=== PATIENT | female | born 1990 | race Two or more races ===

== ENCOUNTER 2018-08-09 15:36 | Inpatient (IN) | payer MEDICAID ==
[~2018-08-09] VITALS: Ht 167.6 cm; Wt 86.3 kg
[2018-08-09] MEDS ORDERED: SODIUM CHLORIDE 0.9% 500 ML IV ONE (15:46)
[2018-08-09] MEDS ORDERED: MORPHINE SULFATE 4 MG/ML SYR/VIAL IV ONE (16:00)
[2018-08-09] MEDS ORDERED: ONDANSETRON HCL 4 MG/2 ML VIAL IV ONE (16:00)
[2018-08-09 16:42] LABS: Albumin 3.2 g/dL (3.4-5.0); Calcium 7.5 mg/dL (8.5-10.1); Magnesium 2.2 mg/dL (1.6-2.6); Potassium 3.9 mmol/L (3.5-5.1)
[2018-08-09 16:44] LABS: Basophils # (auto) 0 uL; Basophils % (auto) 0.2 % (0.0-2.0); Eosinophils # (auto) 0 uL; Eosinophils % (auto) 0.2 % (0.0-7.0); Hematocrit 30.3 % (36.0-46.0); Hemoglobin 10.3 g/dL (12.2-16.2); Mean Corpuscular Hemoglobin 28.1 pg (28.0-32.0); Mean Corpuscular Volume 82.6 fL (80.0-100.0); Monocytes # (auto) 0.2 uL; Monocytes % (auto) 3.5 % (0.0-12.0); Neutrophils # (auto) 5.6 uL; Neutrophils % (auto) 82.1 % (37.0-80.0); Platelet Count (auto) 121 10^3/uL (140-450); Red Blood Cells 3.67 10^6/uL (4.0-5.20); Red Cell Distribution Width 13.6 % (11.8-14.3); White Blood Cell 6.8 10^3/uL (4.4-10.8)
[2018-08-09 16:45] LABS: BUN/Creatinine Ratio 8.8
[2018-08-09 16:47] LABS: Bilirubin, Total 0.2 mg/dL (0.2-1.0); Total Protein 6.7 g/dL (6.4-8.2)
[2018-08-09 17:12] LABS: INR 0.96 (0.9-1.15); Partial Thromboplastin Time 23.2 sec (23.78-33.04); Prothrombin Time 10.3 sec (9.27-12.13)
[2018-08-09 17:33] LABS: Urine Bacteria NONE SEEN /hpf (None Seen); Urine Blood Negative /uL (Negative); Urine Mucus FEW (None Seen); Urine Specific Gravity 1.014 (1.001-1.035); Urine WBC 2 /hpf (0 - 5)
[2018-08-09] MEDS ORDERED: MIDAZOLAM HCL 1MG/1ML-2 ML VIAL ONE (20:33)
[2018-08-09] MEDS ORDERED: NEOSTIGMINE 1 MG/ML INJ (10mg/10ML VIAL) ONE (20:33)
[2018-08-09] MEDS ORDERED: GLYCOPYRROLATE 0.2 MG/ML 1ML VIAL ONE (20:33)
[2018-08-09] MEDS ORDERED: fentaNYL CITRATE 100 MCG/2 ML VL ONE (20:33)
[2018-08-09] MEDS ORDERED: KETOROLAC TROMETH 60MG/2ML VIAL IM ONE (20:33)
[2018-08-09] MEDS ORDERED: MEPERIDINE HCL (50 MG/ML) 1 ML VIAL ONE (20:33)
[2018-08-09] MEDS ORDERED: PROPOFOL 10 MG/ML 20 ML IV ONE (20:33)
[2018-08-09] MEDS ORDERED: SODIUM CHLORIDE LOCK 10 ML ONE (20:33)
[2018-08-09] MEDS ORDERED: ONDANSETRON HCL 4 MG/2 ML VIAL ONE (20:33)
[2018-08-09] MEDS ORDERED: ROCURONIUM 10MG/ML 10ML VIAL IV ONE (20:33)
[2018-08-09] MEDS ORDERED: fentaNYL CITRATE 5 ML ONE (20:37)
[2018-08-09] MEDS ORDERED: ceFAZolin 1GM/50ML 50 ML IV ONE (21:03)
[2018-08-09] MEDS ORDERED: ACETAMINOPHEN 500 MG TAB PO PRN (22:00)
[2018-08-09 22:27] LABS: Basophils # (auto) 0 uL; Basophils % (auto) 0.1 % (0.0-2.0); Eosinophils # (auto) 0 uL; Hemoglobin 8.4 g/dL (12.2-16.2); Lymphocytes # (auto) 0.8 uL; Lymphocytes % (auto) 8.2 % (10.0-50.0); Mean Corpuscular Volume 84.6 fL (80.0-100.0); Monocytes # (auto) 0.4 uL; Red Cell Distribution Width 13.8 % (11.8-14.3)
[2018-08-09 22:29] LABS: Hematocrit 25.7 % (36.0-46.0); Mean Corpuscular Hemoglobin 27.7 pg (28.0-32.0); Mean Corpuscular Hgb Conc. 32.7 g/dL (32.0-36.0); Monocytes % (auto) 4.1 % (0.0-12.0); Neutrophils # (auto) 8.9 uL; Neutrophils % (auto) 87.6 % (37.0-80.0); Platelet Count (auto) 136 10^3/uL (140-450); Red Blood Cells 3.04 10^6/uL (4.0-5.20); White Blood Cell 10.1 10^3/uL (4.4-10.8)
[2018-08-09 23:00] VITALS: BP 111/71
[2018-08-09 23:10] VITALS: BP 111/71
[2018-08-09] MEDS: MORPHINE SULFATE 4 MG/ML SYR/VIAL IV PRN (23:42)
[2018-08-10] VITALS (8 sets, daily range): BP systolic 99–107; BP diastolic 48–64
[2018-08-10] MEDS: MORPHINE SULFATE 4 MG/ML SYR/VIAL IV PRN (05:20)
[2018-08-10 06:46] LABS: Basophils # (auto) 0 uL; Eosinophils # (auto) 0 uL; Hemoglobin 7.8 g/dL (12.2-16.2); Lymphocytes # (auto) 0.3 uL; Mean Corpuscular Hgb Conc. 34.3 g/dL (32.0-36.0); Monocytes # (auto) 0.1 uL; Monocytes % (auto) 2.2 % (0.0-12.0); Platelet Count (auto) 112 10^3/uL (140-450)
[2018-08-10 06:49] LABS: Hematocrit 22.6 % (36.0-46.0); Lymphocytes % (auto) 5.5 % (10.0-50.0); Mean Corpuscular Hemoglobin 28.2 pg (28.0-32.0); Mean Corpuscular Volume 82.1 fL (80.0-100.0); Neutrophils # (auto) 5.3 uL; Neutrophils % (auto) 92.3 % (37.0-80.0); Red Blood Cells 2.76 10^6/uL (4.0-5.20); Red Cell Distribution Width 13.5 % (11.8-14.3); White Blood Cell 5.8 10^3/uL (4.4-10.8)
[2018-08-10] MEDS ORDERED: BISACODYL 10 MG RECT SUPP PR PRN (08:30)
[2018-08-10] MEDS ORDERED: RHO (D) IMMUNE GLOBULIN 300 MCG INJ IM PRN (08:30)
[2018-08-10] MEDS: ONDANSETRON HCL 4 MG/2 ML VIAL IV PRN ×2 (10:30→16:25)
[2018-08-10] MEDS: KETOROLAC TROMETH 30 MG/ML 1ML VIAL IV PRN ×2 (10:31→21:38)
[2018-08-10] MEDS: HYDROcodone-ACET 10/325MG TAB PO PRN ×3 (11:43→23:29)
[2018-08-10] MEDS: SIMETHICONE 80 MG CHEWABLE TABLET PO SCH ×3 (16:24→21:39)
[2018-08-10] MEDS: DOCUSATE CALCIUM 240 MG CAP PO SCH (16:46)
[2018-08-10] MEDS: LACTATED RINGER'S 1,000 ML IV SCH (19:00)
[2018-08-10 19:53] LABS: Basophils # (auto) 0 uL; Basophils % (auto) 0.1 % (0.0-2.0); Eosinophils # (auto) 0 uL; Hematocrit 23.6 % (36.0-46.0); Hemoglobin 8.2 g/dL (12.2-16.2); Lymphocytes # (auto) 0.8 uL; Lymphocytes % (auto) 18.7 % (10.0-50.0); Mean Corpuscular Hemoglobin 28.6 pg (28.0-32.0); Mean Corpuscular Hgb Conc. 34.7 g/dL (32.0-36.0); Mean Corpuscular Volume 82.6 fL (80.0-100.0); Monocytes # (auto) 0.3 uL; Monocytes % (auto) 7.2 % (0.0-12.0); Neutrophils # (auto) 3.3 uL; Platelet Count (auto) 110 10^3/uL (140-450); Red Blood Cells 2.86 10^6/uL (4.0-5.20); Red Cell Distribution Width 13.8 % (11.8-14.3); White Blood Cell 4.5 10^3/uL (4.4-10.8)
[2018-08-11] MEDS: LACTATED RINGER'S 1,000 ML IV SCH ×3 (00:32→23:30)
[2018-08-11] MEDS: HYDROcodone-ACET 10/325MG TAB PO PRN ×5 (02:30→21:05)
[2018-08-11 05:00] VITALS: BP 106/61
[2018-08-11] MEDS: SIMETHICONE 80 MG CHEWABLE TABLET PO SCH ×4 (06:09→21:04)
[2018-08-11] MEDS ORDERED: LACTATED RINGER'S 1,000 ML IV SCH (06:15)
[2018-08-11 07:07] LABS: Basophils # (auto) 0 uL; Basophils % (auto) 0.3 % (0.0-2.0); Eosinophils # (auto) 0 uL; Hemoglobin 7.7 g/dL (12.2-16.2); Lymphocytes # (auto) 0.9 uL; Monocytes # (auto) 0.2 uL; Nucleated Red Blood Cells % 0.1 %; Platelet Count (auto) 86 10^3/uL (140-450); Red Cell Distribution Width 13.9 % (11.8-14.3)
[2018-08-11 07:09] LABS: Eosinophils % (auto) 0.1 % (0.0-7.0); Mean Corpuscular Hemoglobin 28.9 pg (28.0-32.0); Mean Corpuscular Hgb Conc. 34.8 g/dL (32.0-36.0); Neutrophils % (auto) 64.6 % (37.0-80.0); Red Blood Cells 2.65 10^6/uL (4.0-5.20)
[2018-08-11 08:17] VITALS: BP 112/65
[2018-08-11] MEDS: ONDANSETRON HCL 4 MG/2 ML VIAL IV PRN (08:37)
[2018-08-11] MEDS: KETOROLAC TROMETH 30 MG/ML 1ML VIAL IV PRN (08:37)
[2018-08-11] MEDS: DOCUSATE CALCIUM 240 MG CAP PO SCH (10:00)
[2018-08-11 12:07] VITALS: BP 113/65
[2018-08-11 16:39] VITALS: BP 101/67
[2018-08-11] MEDS: DOCUSATE SOD 100 MG CAP PO PRN (21:05)
[2018-08-11 21:45] VITALS: BP 114/70
[2018-08-12] MEDS: KETOROLAC TROMETH 30 MG/ML 1ML VIAL IV PRN (00:02)
[2018-08-12 04:39] VITALS: BP 111/62
[2018-08-12] MEDS: HYDROcodone-ACET 10/325MG TAB PO PRN (05:53)
[2018-08-12] MEDS: SIMETHICONE 80 MG CHEWABLE TABLET PO SCH ×2 (05:53→12:40)
[2018-08-12] MEDS: ONDANSETRON HCL 4 MG/2 ML VIAL IV PRN (08:36)
[2018-08-12 08:54] VITALS: BP 112/68
[2018-08-12] MEDS: DOCUSATE SOD 100 MG CAP PO PRN (08:57)
[2018-08-12] MEDS: DOCUSATE CALCIUM 240 MG CAP PO SCH (11:33)
[2018-08-12 13:00] VITALS: BP 114/66
== END 2018-08-12 16:30 | disposition home or self-care (01) | DRG 545 ==
LOC: EDBD 15:36 → ER 15:46 → OR 1 21:10 → CENTRAL 23:00
PROVIDERS: ADMIT Obstetrics & Gynecology; ATTEND Obstetrics & Gynecology
PROC: 10T20ZZ Resection of Products of Conception, Ectopic, Open Approach (ICD-10-PCS; 2018-08-09)
PROC: 30233N0 Transfusion of Autologous Red Blood Cells into Peripheral Vein, Percutaneous Approach (ICD-10-PCS; 2018-08-09)
PROC: 0WCG0ZZ Extirpation of Matter from Peritoneal Cavity, Open Approach (ICD-10-PCS; 2018-08-09)
PROC: 0UB50ZZ Excision of Right Fallopian Tube, Open Approach (ICD-10-PCS; principal; 2018-08-09 21:00)
DX: O00.101 Right tubal pregnancy without intrauterine pregnancy (principal); K66.1 Hemoperitoneum; N83.201 Unspecified ovarian cyst, right side; Z87.59 Personal history of other complications of pregnancy, childbirth and the puerperium; F17.200 Nicotine dependence, unspecified, uncomplicated; F41.9 Anxiety disorder, unspecified; I95.9 Hypotension, unspecified
CPT/HCPCS: 36415; 51702; 76801; 76817; 80053; 81001; 81025; 83735; 84702; 85025; 85610; 85730; 86850; 86900; 86901; 86920; 93005; 94761; 96361; 96374; 96375; J0690; J1885; J2250; J2405; J2704

== ENCOUNTER 2018-10-11 14:44 | Emergency (ER) | payer MEDICAID ==
[~2018-10-11] VITALS: Ht 167.6 cm; Wt 65.3 kg
[2018-10-11 15:30] LABS: Urine Bacteria NONE SEEN /hpf (None Seen); Urine Blood 2+ /uL (Negative); Urine Mucus FEW (None Seen); Urine Specific Gravity 1.022 (1.001-1.035); Urine WBC 3 /hpf (0 - 5)
[2018-10-11 15:33] VITALS: BP 113/68
[2018-10-11 16:02] LABS: Basophils # (auto) 0 uL; Basophils % (auto) 0.6 % (0.0-2.0); Eosinophils # (auto) 0 uL; Eosinophils % (auto) 0.7 % (0.0-7.0); Hematocrit 30.5 % (36.0-46.0); Hemoglobin 9.4 g/dL (12.2-16.2); Lymphocytes # (auto) 0.9 uL; Mean Corpuscular Hemoglobin 23.5 pg (28.0-32.0); Mean Corpuscular Hgb Conc. 30.6 g/dL (32.0-36.0); Mean Corpuscular Volume 76.8 fL (80.0-100.0); Monocytes # (auto) 0.2 uL; Monocytes % (auto) 6.5 % (0.0-12.0); Neutrophils # (auto) 2.1 uL; Neutrophils % (auto) 65.2 % (37.0-80.0); Nucleated Red Blood Cells % 0.2 %; Platelet Count (auto) 159 10^3/uL (140-450); Red Blood Cells 3.97 10^6/uL (4.0-5.20); Red Cell Distribution Width 15.3 % (11.8-14.3); White Blood Cell 3.2 10^3/uL (4.4-10.8)
== END 2018-10-11 16:25 | disposition home or self-care (01) ==
LOC: ER 14:44
DX: N94.6 Dysmenorrhea, unspecified (principal); I10 Essential (primary) hypertension
CPT/HCPCS: 36415; 81001; 84702; 85025; 94761

== ENCOUNTER 2019-04-19 18:41 | Emergency (ER) | payer MEDICAID ==
[~2019-04-19] VITALS: Ht 165.1 cm; Wt 63.5 kg
[2019-04-19 19:59] LABS: Basophils # (auto) 0 uL; Basophils % (auto) 0.3 % (0.0-2.0); Eosinophils # (auto) 0 uL; Eosinophils % (auto) 0.2 % (0.0-7.0); Hemoglobin 9.4 g/dL (12.2-16.2); Mean Corpuscular Hemoglobin 22.9 pg (28.0-32.0); Monocytes # (auto) 0.3 uL; Platelet Count (auto) 155 10^3/uL (140-450); Red Blood Cells 4.12 10^6/uL (4.0-5.20)
[2019-04-19 20:01] LABS: Lymphocytes # (auto) 0.7 uL; Lymphocytes % (auto) 11.4 % (10.0-50.0); Mean Corpuscular Hgb Conc. 31.3 g/dL (32.0-36.0); Monocytes % (auto) 4.4 % (0.0-12.0); Neutrophils # (auto) 5.5 uL; Neutrophils % (auto) 83.7 % (37.0-80.0); Red Cell Distribution Width 16.1 % (11.8-14.3); White Blood Cell 6.5 10^3/uL (4.4-10.8)
[2019-04-19 20:19] LABS: Albumin 3.7 g/dL (3.4-5.0); BUN/Creatinine Ratio 10.1; Calcium 8.3 mg/dL (8.5-10.1); Potassium 3.6 mmol/L (3.5-5.1)
[2019-04-19 20:22] LABS: Bilirubin, Total 0.2 mg/dL (0.2-1.0); Total Protein 7.5 g/dL (6.4-8.2)
[2019-04-19 20:43] LABS: Urine Bacteria NONE SEEN /hpf (None Seen); Urine Blood 1+ /uL (Negative); Urine Specific Gravity 1.005 (1.001-1.035); Urine WBC <1 /hpf (0 - 5)
[2019-04-19] MEDS ORDERED: ONDANSETRON HCL 4 MG/2 ML VIAL IV ONE (21:00)
[2019-04-19] MEDS ORDERED: MORPHINE SULFATE 4 MG/ML SYR/VIAL IV ONE (21:00)
[2019-04-19] MEDS ORDERED: SODIUM CHLORIDE 0.9% 1,000 ML IV ONE (21:00)
[2019-04-20 02:44] VITALS: BP 112/74
== END 2019-04-20 02:32 | disposition home or self-care (01) ==
LOC: EDBD 18:41 → ER 18:42
DX: K42.9 Umbilical hernia without obstruction or gangrene (principal)
CPT/HCPCS: 36415; 74176; 80053; 81001; 81025; 83690; 84702; 85025; 96374; 96375; 99284; J2270; J2405; J7030; 96361

== ENCOUNTER 2019-04-20 10:57 | Emergency (ER) | payer MEDICAID ==
[~2019-04-20] VITALS: Ht 167.6 cm; Wt 77.1 kg
[2019-04-20 11:29] VITALS: BP 114/37
[2019-04-20] MEDS ORDERED: KETOROLAC TROMETH 60MG/2ML VIAL IM ONE (11:30)
== END 2019-04-20 13:57 | disposition home or self-care (01) ==
LOC: ER 10:57
DX: N83.201 Unspecified ovarian cyst, right side (principal); K59.00 Constipation, unspecified
CPT/HCPCS: 76856; 96372; 99284; J1885

== ENCOUNTER 2021-05-15 22:20 | Emergency (ER) | payer MEDICAID ==
[~2021-05-15] VITALS: Ht 162.6 cm; Wt 65.8 kg
[2021-05-15 22:42] LABS: Basophils # (auto) 0 10 ^3/uL (0-0.2); Basophils % (auto) 0.7 % (0.0-2.0); Eosinophils # (auto) 0 10 ^3/uL (0-0.8); Eosinophils % (auto) 0.8 % (0.0-7.0); Hematocrit 36.3 % (36.0-46.0); Hemoglobin 12.2 g/dL (12.2-16.2); Lymphocytes # (auto) 1.1 10 ^3/uL (0.4-5.4); Lymphocytes % (auto) 29.4 % (10.0-50.0); Mean Corpuscular Hemoglobin 27.1 pg (28.0-32.0); Mean Corpuscular Hgb Conc. 33.7 g/dL (32.0-36.0); Mean Corpuscular Volume 80.5 fL (80.0-100.0); Monocytes # (auto) 0.2 10 ^3/uL (0-1.3); Monocytes % (auto) 5.5 % (0.0-12.0); Neutrophils # (auto) 2.4 10 ^3/uL (1.6-8.6); Neutrophils % (auto) 63.6 % (37.0-80.0); Nucleated Red Blood Cells % 0.3 %; Red Blood Cells 4.51 10^6/uL (4.0-5.20); Red Cell Distribution Width 14.6 % (11.8-14.3); White Blood Cell 3.9 10^3/uL (4.4-10.8)
[2021-05-15 23:08] LABS: BUN/Creatinine Ratio 14.1; Calcium 8.6 mg/dL (8.5-10.1); Potassium 3.4 mmol/L (3.5-5.1)
[2021-05-16] MEDS ORDERED: cefTRIAXone 1GM/50ML D5W 50 ML IV ONE (02:30)
[2021-05-16] MEDS ORDERED: MORPHINE SULFATE 4 MG/ML SYR/VIAL IV ONE (02:30)
[2021-05-16] MEDS ORDERED: KETOROLAC TROMETH 30 MG/ML 1ML VIAL IV ONE (02:30)
[2021-05-16] MEDS ORDERED: diphenhdrAMINE HCL 50 MG/1 ML VL IV ONE (02:30)
[2021-05-16 05:00] VITALS: BP 111/66
== END 2021-05-16 06:41 | disposition home or self-care (01) ==
LOC: EDBD 22:20 → ER 22:21
DX: R10.2 Pelvic and perineal pain (principal); N89.8 Other specified noninflammatory disorders of vagina; F41.9 Anxiety disorder, unspecified; Z88.6 Allergy status to analgesic agent; Z88.5 Allergy status to narcotic agent
CPT/HCPCS: 36415; 76830; 76856; 80048; 81001; 81025; 85025; 87070; 87205; 87210; 96365; 96375; 99285; J0696; J1200; J1885; J2270

== ENCOUNTER 2021-05-30 23:18 | Emergency (ER) | payer MEDICAID ==
[~2021-05-30] VITALS: Ht 165.1 cm; Wt 78.0 kg
[2021-05-31 00:26] LABS: Basophils # (auto) 0 10 ^3/uL (0-0.2); Basophils % (auto) 0.5 % (0.0-2.0); Eosinophils # (auto) 0 10 ^3/uL (0-0.8); Eosinophils % (auto) 0.6 % (0.0-7.0); Hematocrit 35.8 % (36.0-46.0); Hemoglobin 12.3 g/dL (12.2-16.2); Lymphocytes # (auto) 0.9 10 ^3/uL (0.4-5.4); Lymphocytes % (auto) 22.8 % (10.0-50.0); Mean Corpuscular Hemoglobin 27.9 pg (28.0-32.0); Mean Corpuscular Hgb Conc. 34.3 g/dL (32.0-36.0); Mean Corpuscular Volume 81.3 fL (80.0-100.0); Monocytes # (auto) 0.2 10 ^3/uL (0-1.3); Monocytes % (auto) 5.1 % (0.0-12.0); Neutrophils # (auto) 2.7 10 ^3/uL (1.6-8.6); Nucleated Red Blood Cells % 0.1 %; Red Blood Cells 4.41 10^6/uL (4.0-5.20); Red Cell Distribution Width 14.7 % (11.8-14.3); White Blood Cell 3.8 10^3/uL (4.4-10.8)
[2021-05-31 00:43] LABS: Albumin 3.6 g/dL (3.4-5.0); Calcium 8.6 mg/dL (8.5-10.1); Potassium 3.5 mmol/L (3.5-5.1)
[2021-05-31 00:45] LABS: BUN/Creatinine Ratio 10.9
[2021-05-31 00:48] LABS: Bilirubin, Total 0.2 mg/dL (0.2-1.0); Total Protein 7.3 g/dL (6.4-8.2)
[2021-05-31] MEDS ORDERED: IOHEXOL 300 MG/ML 100ML BOTTLE IJ ONE (00:58)
[2021-05-31] MEDS ORDERED: SODIUM CHLORIDE 0.9% 1,000 ML IV ONE (01:00)
[2021-05-31] MEDS ORDERED: MORPHINE SULFATE 4 MG/ML SYR/VIAL IV ONE (01:00)
[2021-05-31] MEDS ORDERED: ONDANSETRON HCL 4 MG/2 ML VIAL IV ONE (01:00)
[2021-05-31 05:30] VITALS: BP 116/76
== END 2021-05-31 06:23 | disposition home or self-care (01) ==
LOC: ER 23:18
DX: G89.18 Other acute postprocedural pain (principal); R10.30 Lower abdominal pain, unspecified; R11.2 Nausea with vomiting, unspecified; F41.9 Anxiety disorder, unspecified; Z88.6 Allergy status to analgesic agent; Z88.5 Allergy status to narcotic agent
CPT/HCPCS: 36415; 74177; 80053; 83690; 84702; 85025; 96374; 96375; 99285; J2270; J2405; Q9967

== ENCOUNTER 2021-09-22 17:39 | Emergency (ER) | payer MEDICAID ==
[~2021-09-22] VITALS: Ht 165.1 cm; Wt 72.6 kg
[2021-09-22 18:03] VITALS: BP 115/58
== END 2021-09-22 22:27 | disposition left against medical advice (07) ==
LOC: ER 17:39
DX: R07.89 Other chest pain (principal); F41.9 Anxiety disorder, unspecified; Z53.21 Procedure and treatment not carried out due to patient leaving prior to being seen by health care provider

== ENCOUNTER 2024-09-10 09:35 | Inpatient (IN) | payer MEDICAID, OTHER ==
[~2024-09-10] VITALS: Ht 165.1 cm; Wt 83.6 kg
[~2024-09-10 09:35] MED LIST: LEVO500T91 PO; PRED20TA2 PO
[2024-09-10 09:58] VITALS: PULSE 77; RESP 14; O2SAT 97
[2024-09-10] MEDS: SODIUM CHLORIDE 0.9% 1,000 ML IV ONE ×2 (10:18→13:09)
[2024-09-10 10:26] LABS: Basophils # (auto) 0 10 ^3/uL (0-0.2); Basophils % (auto) 0.4 % (0.0-2.0); Eosinophils # (auto) 0 10 ^3/uL (0-0.8); Eosinophils % (auto) 0.7 % (0.0-7.0); Hematocrit 37.8 % (36.0-46.0); Hemoglobin 12.9 g/dL (12.2-16.2); Lymphocytes % (auto) 26.6 % (10.0-50.0); Mean Corpuscular Hemoglobin 28.2 pg (28.0-32.0); Mean Corpuscular Hgb Conc. 34.1 g/dL (32.0-36.0); Mean Corpuscular Volume 82.6 fL (80.0-100.0); Monocytes # (auto) 0.2 10 ^3/uL (0-1.3); Monocytes % (auto) 5.4 % (0.0-12.0); Neutrophils # (auto) 2.5 10 ^3/uL (1.6-8.6); Neutrophils % (auto) 66.9 % (37.0-80.0); Platelet Count (auto) 156 10^3/uL (140-450); Red Blood Cells 4.58 10^6/uL (4.0-5.20); White Blood Cell 3.7 10^3/uL (4.4-10.8)
[2024-09-10 10:32] LABS: Chloride 108 mmol/L (98-107); Potassium 3.7 mmol/L (3.5-5.1); Sodium 140 mmol/L (136-145)
[2024-09-10 10:33] LABS: Anion Gap 3 (5-15); Calcium 9.6 mg/dL (8.7-10.4); Carbon Dioxide 29 mmol/L (20-31)
[2024-09-10 10:38] LABS: BUN/Creatinine Ratio 9.9 (10.0-20.0); Blood Urea Nitrogen 7 mg/dL (9-23); Glucose 92 mg/dL (74-106)
--- NOTE | 2024-09-10 10:53 | DVH ---
EXAM: CT HEAD WITHOUT CONTRAST INDICATION: syncope TECHNIQUE: CT of the head without intravenous contrast. Radiation dose : Head: CT Dose: CTDI volume is 49 mGy. Dose-length product is 863.9 mGy*cm The dose indicators for CT are the volume computed tomography (CT) dose index (CTDIvol) and the dose length product (DLP), and are measured in units of mGy and mGy-cm, respectively. These indicators are not patient dose, but values generated from the CT scanner acquisition factors. The report includes radiation exposure data for exposures received during this examination. COMPARISON: None FINDINGS: There is no evidence of acute intracranial hemorrhage, extra-axial collection, mass effect, midline s hift, herniation or hydrocephalus. The ventricles, sulci and cisterns are age appropriate. The davila-white differentiation is intact. The visualized paranasal sinuses and mastoid air cells are clear. The surrounding soft tissues and osseous structures are unremarkable. IMPRESSION: 1. No acute intracranial abnormality. Radiation optimization: All CT scans at this facility use at least one of these dose optimization darin hniques: Automated exposure control mA and/or kV adjustment per patient size (includes targeted exams where dose is matched to clinical indication) or iterative reconstruction. HS:Y
--- NOTE | 2024-09-10 11:40 | ED.PDOC ---
History of Present Illness HPI Comments 33 y/o F is BIBA for c/o back and right leg pain s/p syncope, today. Per EMS report, patient was found by bystanders on the ground nearby a street crossing, endorsing symptoms, after having an unwitnessed syncopal episode. Patient comments on having no recollection of events aside from dropping of her kids and sitting in her car, earlier. Patient denies any headache, vision or speech changes, dizziness, weakness, nausea vomiting, or other associated symptoms or modifiers at this time. Chief Complaint: Syncope Time Seen by MD: 09:50 Reviewed Notes: Nurses Notes, Medications, Allergies Allergies: Coded Allergies: Acetaminophen (Verified Allergy, Unknown, 05/16/21) Hydrocodone (Verified Allergy, Unknown, 05/16/21) No Known Drug Allergy (Unverified Allergy, Unknown, 01/02/23) Home Meds Active Scripts Prednisone (Prednisone) 20 Mg Tab, 20 MG PO DAILY for 5 Days, #5 MG Prov:VARSHA GAXIOLA MD 10/19/23 Levofloxacin Hemihydrate (LEVOFLOXACIN) 500 Mg Tab, 500 MG PO DAILY for 7 Days, #7 MG Prov:VARSHA GAXIOLA MD 10/19/23 Information Source: Patient Mode of Arrival: EMS Severity: Moderate Timing: Hours Duration: Since onset Prehospital treatment: 12 Lead EKG, Sonar Technician Past Medical History PAST MEDICAL HISTORY: Denies Surgical History: Denies all surgeries MIGRATORY FARM HAND History: Denies all MIGRATORY FARM HAND Hx Family History Family History: Unknown Social History Smoker: Non-Smoker Alcohol: Denies ETOH Use Drugs: Denies Drug Use Lives In: Home Constitutional: denies: chills, diaphoresis, fatigue, fever, malaise, sweats, weakness, others EENTM: denies: blurred vision, double vision, ear bleeding, ear discharge, ear drainage, ear pain, ear ringing, eye pain, eye redness, hearing loss, mouth pain, mouth swelling, nasal discharge, nose bleeding, nose congestion, nose pain, photophobia, tearing, throat pain, throat swelling, voice changes, others Respiratory: denies: cough, hemoptysis, orthopnea, SOB at rest, shortness of breath, SOB with excertion, stridor, wheezing, others Cardiovascular: reports: syncope; denies: chest pain, dizzy spells, diaphoresis, Dyspnea on exertion, edema, irregular heart beat, left arm pain, lightheadedness, palpitations, PND, others Gastrointestinal: denies: abdomen distended, abdominal pain, blood streaked bowels, constipated, diarrhea, dysphagia, difficulty swallowing, hematemesis, melena, nausea, poor appetite, poor fluid intake, rectal bleeding, rectal pain, vomiting, others Genitourinary: denies: abnormal vagina bleeding, burning, dyspareunia, dysuria, flank pain, frequency, hematuria, incontinence, pain, , vagina discharge, urgency, others Neurological: denies: dizziness, fainting, headache, left sided numbness, left sided weakness, numbness, paresthesia, pre-existing deficit, right sided numbness, right sided weakness, seizure, speech problems, tingling, tremors, weakness, others Musculoskeletal: reports: back pain, others (right-leg pain ); denies: gout, joint pain, joint swelling, muscle pain, muscle stiffness, neck pain Integumetry: denies: bruises, change in color, change in hair/nails, dryness, laceration, lesions, lumps, rash, wounds, others Allergic/Immunocompromised: denies: Difficulty Healing, Frequent Infections, Hives, Itching, others Hematologic/Lymphatic: denies: anemia, blood clots, easy bleeding, easy bruising, swollen glands, others Endocrine: denies: excessive hunger, excessive sweating, excessive thirst, excessive urination, flushing, intolerance to cold, intolerance to heat, unexplained weight gain, unexplained weight loss, others Psychiatric: denies: anxiety, bipolar disorder, depression, hopeless, panic disorder, schizophrenia, sleepless, suicidal, others All Other Systems: Reviewed and Negative Physical Exam General Appearance: Moderate Distress HEENT: Normal ENT Inspection, Pharynx Normal, TMs Normal Neck: Full Range of Motion, Non-Tender, Normal, Normal Inspection Respiratory: Chest Non-Tender, Lungs Clear, No Accessory Muscle Use, No Res piratory Distress, Normal Breath Sounds Cardiovascular: No Edema, No JVD, No Murmur, No Gallop, Normal Peripheral Pulses, Regular Rate/Rhythm Breast Exam: Deferred Gastrointestinal: No Organomegaly, Non Tender, No Pulsatile Mass, Normal Bowel Sounds, Soft Genitalia: Deferred Pelvic: Deferred Rectal: Deferred Extremities: No calf tenderness, Normal capillary refill, Normal inspection, Normal range of motion, Non-tender, No pedal edema Musculoskeletal : Apperance: Normal Neurologic: Disoriented Cerebellar Function: NOT DONE Reflexes: NOT DONE Skin: Pallor Peripheral Pulses: 3+ Radial (R), 3+ Radial (L) Lymphatic: No Adenopathy Was a procedure done? Was a procedure done?: No Differential Dx Considerations may include: vasovagal response, electrolyte imbalance, dehydration, hypotension, closed head injury X-Ray, Labs, Meds, VS Vital Signs Date Time Temp Pulse Resp B/P (MAP) Pulse Ox O2 Delivery O2 Flow Rate FiO2 09/10/24 13:09 72 16 115/74 (88) 100 09/10/24 09:58 77 14 97 Room Air* 0 21 09/10/24 09:55 77 16 112/75 (87) 99 09/10/24 09:45 97.5 91 18 124/81 (95) 100 Lab Test 09/10/24 16:28 09/10/24 10:04 Range/Units Plasma/Serum Blood Alcohol Pending White Blood Count 3.7 L 4.4-10.8 10^3/uL Red Blood Count 4.58 4.0-5.20 10^6/uL Hemoglobin 12.9 12.2-16.2 g/dL Hematocrit 37.8 36.0-46.0 % Mean Corpuscular Volume 82.6 80.0-100.0 fL Mean Corpuscular Hemoglobin 28.2 28.0-32.0 pg Mean Corpuscular Hemoglobin Concent 34.1 32.0-36.0 g/dL Red Cell Distribution Width 14.0 11.8-14.3 % Platelet Count 156 140-450 10^3/uL Mean Platelet Volume 9.4 6.9-10.8 fL Neutrophils (%) (Auto) 66.9 37.0-80.0 % Lymphocytes (%) (Auto) 26.6 10.0-50.0 % Monocytes (%) (Auto) 5.4 0.0-12.0 % Eosinophils (%) (Auto) 0.7 0.0-7.0 % Basophils (%) (Auto) 0.4 0.0-2.0 % Neutrophils # (Auto) 2.5 1.6-8.6 10 ^3/uL Lymphocytes # (Auto) 1.0 0.4-5.4 10 ^3/uL Monocytes # (Auto) 0.2 0-1.3 10 ^3/uL Eosinophils # (Auto) 0 0-0.8 10 ^3/uL Basophils # (Auto) 0 0-0.2 10 ^3/uL Nucleated Red Blood Cells 0.0 % Sodium Level 140 136-145 mmol/L Potassium Level 3.7 3.5-5.1 mmol/L Chloride Level 108 H 98-107 mmol/L Carbon Dioxide Level 29 20-31 mmol/L Anion Gap 3 L 5-15 Blood Urea Nitrogen 7 L 9-23 mg/dL Creatinine 0.71 0.550-1.02 mg/dL Glomerular Filtration Rate Calc 115 >90 mL/min BUN/Creatinine Ratio 9.9 L 10.0-20.0 Serum Glucose 92 74-106 mg/dL Calcium Level 9.6 8.7-10.4 mg/dL Current Medications Medications (Trade) Dose Ordered Sig/Kamille Route Start Time Stop Time Status Last Admin Sodium Chloride 1,000 ml @ 1,000 mls/hr Q1H ONCE IV 09/10/24 10:00 09/10/24 11:02 DC 09/10/24 10:18 Sodium Chloride 1,000 ml @ 150 mls/hr Q6H40M ONCE IV 09/10/24 10:00 09/10/24 16:39 DC 09/10/24 13:09 [place] [address] Ph: [phone] DIAGNOSTIC IMAGING Diagnostic Imaging Report : [id number] Signed PATIENT: VASU MARTINEZ ACCT: [id number] UNIT: [id number] : 1990 LOC: ER ROOM / BED: / AGE / SEX: 33 / F ADM STATUS: REG ER SERVICE 1000 ORDERING PHYSICIAN: VARSHA GAXIOLA MD PROCEDURE(s): HWOCT - HEAD WITHOUT CONTRAST REASON: syncope ORDER NUMBER(s): [id number], ACCESSION NUMBER(s): [id number] EXAM: CT HEAD WITHOUT CONTRAST INDICATION: syncope TECHNIQUE: CT of the head without intravenous contrast. Radiation dose : Head: CT Dose: CTDI volume is 49 mGy. Dose-length product is 863.9 mGy*cm The dose indicators for CT are the volume computed tomography (CT) dose index (CTDIvol) and the dose length product (DLP), and are measured in units of mGy and mGy-cm, respectively. These indicators are not patient dose, but values generated from the CT scanner acquisition factors. The report includes radiation exposure data for exposures received during this examination. COMPARISON: None FINDINGS: There is no evidence of acute intracranial hemorrhage, extra-axial collection, mass effect, midline shift, herniation or hydrocephalus. The ventricles, sulci and cisterns are age appropriate. The davila-white differentiation is intact. The visualized paranasal sinuses and mastoid air cells are clear. The surrounding soft tissues and osseous structures are unremarkable. IMPRESSION: 1. No acute intracranial abnormality. Radiation optimization: All CT scans at this facility use at least one of these dose optimization techniques: Automated exposure control mA and/or kV adjustment per patient size (includes targeted exams where dose is matched to clinical indication) or iterative reconstruction. HS:Y ATED BY: NAWAF DAS MD DICTATED DATE/TIME: 09/10/24 1050 SIGNED BY: NAWAF DAS MD SIGNED DATE/TIME: 09/10/24 105 CC: Patient disoriented. She does not remember what really happened. All she remembers is dropping her daughter off at school. Innocent bystander found her on the ground. CT of the head reviewed does not show any acute process. Possibly need MRI. Unable to get a good history from the patient. Establish intravenous access. Was given fluids. She is not anemic. Waiting for family. Explained to the patient. Continue cardiac monitoring. [address] [address] Ph: [phone] DIAGNOSTIC IMAGING Diagnostic Imaging Report : [id number] Signed PATIENT: BENITEZ FLOWERSCT: [id number] UNIT: [id number] : 1990 LOC: ER ROOM / BED: / AGE / SEX: 33 / F ADM STATUS: REG ER SERVICE 1000 ORDERING PHYSICIAN: VARSHA GAXIOLA MD PROCEDURE(s): HWOCT - HEAD WITHOUT CONTRAST REASON: syncope ORDER NUMBER(s): [id number], ACCESSION NUMBER(s): [id number] EXAM: CT HEAD WITHOUT CONTRAST INDICATION: syncope TECHNIQUE: CT of the head without intravenous contrast. Radiation dose : Head: CT Dose: CTDI volume is 49 mGy. Dose-length product is 863.9 mGy*cm The dose indicators for CT are the volume computed tomography (CT) dose index (CTDIvol) and the dose length product (DLP), and are measured in units of mGy and mGy-cm, respectively. These indicators are not patient dose, but values generated from the CT scanner acquisition factors. The report includes radiation exposure data for exposures received during this examination. COMPARISON: None FINDINGS: There is no evidence of acute intracranial hemorrhage, extra-axial collection, mass effect, midline shift, herniation or hydrocephalus. The ventricles, sulci and cisterns are age appropriate. The davila-white differentiation is intact. The visualized paranasal sinuses and mastoid air cells are clear. The surrounding soft tissues and osseous structures are unremarkable. IMPRESSION: 1. No acute intracranial abnormality. Radiation optimization: All CT scans at this facility use at least one of these dose optimization techniques: Automated exposure control mA and/or kV adjustment per patient size (includes targeted exams where dose is matched to clinical indication) or iterative reconstruction. HS:Y ATED BY: NAWAF DAS MD DICTATED DATE/TIME: 09/10/24 1050 SIGNED BY: NAWAF DAS MD SIGNED DATE/TIME: 09/10/24 1050 CC: Time of 1ST Reevaluation: 10:20 Reevaluation 1ST: Unchanged Patient Education/Counseling: Diagnosis, Treatment Family Education/Counseling: No Family Present Departure 1 Departure Time of Disposition: 12:27 Impression: Primary Impression: Metabolic encephalopathy Additional Impression: Syncope Qualified Codes: R55 - Syncope and collapse Disposition: ADMITTED INPATIENT Admit to: Med Surg Condition: Guarded Critical Care Note Critical Care Time?: Yes (45 min-critical care time only) Stability Stability form required: No Heart Score Heart Score: Heart Score Response (Comments) Value History N/A 0 EKG N/A 0 Age N/A 0 Risk Factors N/A 0 Troponin N/A 0 Total 0 I personally scribed for VARSHA GAXIOLA MD ([email or web address]) on 09/10/24 at 11:40. Electronically submitted by Tahir Wing ([email or web address]). I personally scribed for VARSHA GAXIOLA MD ([email or web address]) on 09/10/24 at 16:48. Electronically submitted by Tahir Wing ([email or web address]). VARSHA GAXIOLA MD Sep 10, 2024 11:40
[2024-09-10] MEDS ORDERED: MORPHINE SULFATE INJ 2 MG/ml SYRG IV PRN (16:15)
[2024-09-10] MEDS ORDERED: NITROGLYCERIN 0.4 MG SL TAB SL PRN (16:15)
--- NOTE | 2024-09-10 17:22 | DVHHP2 ---
History of Present Illness Reason for Visit: Syncope History of Present Illness 33-year-old female brought in by ambulance for complaints of back and right leg pain status post syncope today. Per EMS patient was found by bystanders on the ground nearby a Street crossing, after having an unwitnessed syncopal episode. Patient does not remember the events aside from dropping off her kids and sitting in her car. Patient had previous syncopal episode back in April, at that time patient had cardiac and neurology workup, everything came back normal. Patient denies chest pain, headache, dizziness, diaphoresis, shortness of breath, abdominal pain, no nausea, vomiting, fever, or chills endorsed by the patient. Patient was admitted for further evaluation medical management. Past Medical History Anxiety Past Surgical History Right fallopian tube removal Family History Reviewed noncontributory to the management of this case Smoke: No ALCOHOL: none Drugs: None Lives: with Family Review of Systems Constitutional: No: Fever, Chills, Sweats, Weakness, Malaise, Other Eyes: No: Pain, Vision change, Conjunctivae inflammation, Eyelid inflammation, Other, Redness ENT: No: Ear pain, Ear discharge, Nose pain, Nose discharge, Nose congestion, Mouth pain, Mouth swelling, Throat pain, Throat swelling, Other Respiratory: No: Cough, Dry, Shortness of breath, SOB with excertion, Wheezing, Hemoptysis, Pleuritic Pain, Sputum, Wheezing, Other Cardiovascular: No: Chest Pain, Palpitations, Orthopnea, Paroxysmal Noc. Dyspnea, Edema, Lt Headedness, Other Gastrointestinal: No: Nausea, Vomiting, Abdominal Pain, Diarrhea, Constipation, Melena, Hematochezia, Other Genitourinary: No Dysuria, No Frequency, No Incontinence, No Hematuria, No Retention, No Other Musculoskeletal: No: other, neck pain, shoulder pain, arm pain, back pain, hand pain, leg pain, foot pain Skin: No: Rash, Lesions, Jaundice, Bruising, Other Neurological: No: Weakness, Numbness, Incoordination, Change in speech, Confusion, Seizures, Other Allergies: Coded Allergies: Acetaminophen (Verified Allergy, Unknown, 05/16/21) Hydrocodone (Verified Allergy, Unknown, 05/16/21) No Known Drug Allergy (Unverified Allergy, Unknown, 01/02/23) Medications Current Medications Medications Dose Ordered Sig/Kamille Route Start Time Stop Time Status Last Admin Dose Admin Ondansetron HCl 4 mg Q4HP PRN IV 09/10/24 16:15 Ketorolac Tromethamine 15 mg Q6HPRN PRN IV 09/10/24 16:15 09/15/24 16:14 Nitroglycerin 0.4 mg Q5MINP PRN SL 09/10/24 16:15 Morphine Sulfate 2 mg Q30M PRN IV 09/10/24 16:15 Hold Exam Vital Signs Vital Signs Date Time Temp Pulse Resp B/P (MAP) Pulse Ox O2 Delivery O2 Flow Rate FiO2 09/10/24 13:09 72 16 115/74 (88) 100 09/10/24 09:58 Room Air* 0 21 09/10/24 09:45 97.5 General Appearance: Alert, Oriented X3, Cooperative, No acute distress HEENT: Atraumatic, PERRLA, Mucous membr. moist/pink Respiratory: Clear to auscultation, Normal air movement Cardiovascular: Regular rate, Normal S1, Normal S2, No murmurs Abdominal: Normal bowel sounds, Soft, No tenderness, No hepatospenomegaly, No masses Extremities: No clubbing, No cyanosis, No edema, Normal pulses, No tenderness/swelling Skin: No rashes, No breakdown, No significant lesion Neuro: Normal gait, Normal speech, Strength at 5/5 X4 ext, Normal tone, Sensation intact, Cranial nerves 3-12 NL Psych/Mental Status: Mental status NL, Mood NL Labs/Xrays Labs, imaging and ED notes reviewed Labs Test 09/10/24 16:28 09/10/24 10:04 Range/Units White Blood Count 3.7 L 4.4-10.8 10^3/uL Red Blood Count 4.58 4.0-5.20 10^6/uL Hemoglobin 12.9 12.2-16.2 g/dL Hematocrit 37.8 36.0-46.0 % Mean Corpuscular Volume 82.6 80.0-100.0 fL Mean Corpuscular Hemoglobin 28.2 28.0-32.0 pg Mean Corpuscular Hemoglobin Concent 34.1 32.0-36.0 g/dL Red Cell Distribution Width 14.0 11.8-14.3 % Platelet Count 156 140-450 10^3/uL Mean Platelet Volume 9.4 6.9-10.8 fL Neutrophils (%) (Auto) 66.9 37.0-80.0 % Lymphocytes (%) (Auto) 26.6 10.0-50.0 % Monocytes (%) (Auto) 5.4 0.0-12.0 % Eosinophils (%) (Auto) 0.7 0.0-7.0 % Basophils (%) (Auto) 0.4 0.0-2.0 % Neutrophils # (Auto) 2.5 1.6-8.6 10 ^3/uL Lymphocytes # (Auto) 1.0 0.4-5.4 10 ^3/uL Monocytes # (Auto) 0.2 0-1.3 10 ^3/uL Eosinophils # (Auto) 0 0-0.8 10 ^3/uL Basophils # (Auto) 0 0-0.2 10 ^3/uL Nucleated Red Blood Cells 0.0 % Sodium Level 140 136-145 mmol/L Potassium Level 3.7 3.5-5.1 mmol/L Chloride Level 108 H 98-107 mmol/L Carbon Dioxide Level 29 20-31 mmol/L Anion Gap 3 L 5-15 Blood Urea Nitrogen 7 L 9-23 mg/dL Creatinine 0.71 0.550-1.02 mg/dL Glomerular Filtration Rate Calc 115 >90 mL/min BUN/Creatinine Ratio 9.9 L 10.0-20.0 Serum Glucose 92 74-106 mg/dL Calcium Level 9.6 8.7-10.4 mg/dL Assessment/Plan Assessment/Plan Syncope Admit to telemetry Recent admit in April- Patient did have cardiac and neurology workup at that time, both were normal UDS pending Urine ETOH pending Head CT negative for acute findings Fall risk Monitor neuro status Encourage p.o. hydration FEN/PPX GI and VTE prophylaxis not indicated Regular diet Plan discussed with: Patient My Orders Orders - VLADIMIR PRIETO Procedure Category Date Status Time Drug Screen LAB 09/10/24 Logged 15:41 Urine Ethanol LAB 09/10/24 In Process 15:41 * Cardiology Consult CONS 09/10/24 Transmitted 15:47 Admit ADMIT 09/10/24 Transmitted 16:15 Code Status CODE 09/10/24 Transmitted 16:15 Vital Signs JULISA 09/10/24 In Process 16:15 Review Orders With JULISA 09/10/24 In Process Adm. 16:15 Maintain Bed Rest JULISA 09/10/24 In Process 16:15 Bedside Commode JULISA 09/10/24 In Process 16:15 Regular Diet DIET 09/10/24 Transmitted Dinner Notify Md Of Changes [facility] 09/10/24 In Process From Base 16:15 Advance Directive JULISA 09/10/24 In Process 16:15 Basic Metabolic Panel LAB 09/11/24 Verified 04:00 Complete Blood Count LAB 09/11/24 Verified 04:00 Patient Condition ORDERS 09/10/24 Transmitted 16:15 Allergies JULISA 09/10/24 In Process 16:15 Ondansetron Hcl PHA 09/10/24 In Process (Zofran) 16:15 Sequential JULISA 09/10/24 In Process Compression Device Ketorolac Injection PHA 09/10/24 In Process (Toradol Injection) 16:15 Nitroglycerin PHA 09/10/24 In Process Sublingual (Ntrostat 16:15 Morphine Sulfate PHA 09/10/24 In Process Injection 16:15 Stat Ekg For Chest [facility] 09/10/24 In Process Pain 16:15 Notify Md Of Changes [facility] 09/10/24 In Process From Base 16:15 Health And Safety Representative For [facility] 09/10/24 In Process 24 Hours 16:15 Emergency Dysrhythmia [facility] 09/10/24 In Process Protocol 16:15 Rhythm Strips Once [facility] 09/10/24 In Process Every Shift 16:15 Oxygen By Nasal RT 09/10/24 Transmitted Cannula 16:15 Date of Service: Sep 10, 2024 Billing Provider: VLADIMIR PRIETO Common Visit Codes: [id number] INP/OBS CARE (HIGH) VLADIMIR PRIETO Sep 10, 2024 17:22
[2024-09-10 20:30] VITALS: PULSE 82; RESP 15; O2SAT 94
[2024-09-10 21:42] VITALS: O2SAT 95
[2024-09-10 21:45] VITALS: BP 122/75; PULSE 78; RESP 16; TEMP 98.2; O2SAT 95
[2024-09-11] VITALS (9 sets, daily range): BP systolic 100–148; BP diastolic 56–78; PULSE 75–100; RESP 16–20; TEMP 97.9–98.3; O2SAT 96–99
[2024-09-11 06:26] LABS: Basophils # (auto) 0 10 ^3/uL (0-0.2); Basophils % (auto) 0.6 % (0.0-2.0); Eosinophils # (auto) 0 10 ^3/uL (0-0.8); Eosinophils % (auto) 1.3 % (0.0-7.0); Hematocrit 34.4 % (36.0-46.0); Hemoglobin 11.5 g/dL (12.2-16.2); Lymphocytes # (auto) 1.1 10 ^3/uL (0.4-5.4); Lymphocytes % (auto) 30.9 % (10.0-50.0); Mean Corpuscular Hemoglobin 27.9 pg (28.0-32.0); Mean Corpuscular Hgb Conc. 33.5 g/dL (32.0-36.0); Mean Corpuscular Volume 83.4 fL (80.0-100.0); Monocytes # (auto) 0.2 10 ^3/uL (0-1.3); Monocytes % (auto) 6.1 % (0.0-12.0); Neutrophils # (auto) 2.1 10 ^3/uL (1.6-8.6); Neutrophils % (auto) 61.1 % (37.0-80.0); Platelet Count (auto) 140 10^3/uL (140-450); Red Blood Cells 4.12 10^6/uL (4.0-5.20); Red Cell Distribution Width 13.8 % (11.8-14.3); White Blood Cell 3.4 10^3/uL (4.4-10.8)
[2024-09-11 06:47] LABS: Chloride 110 mmol/L (98-107); Potassium 3.7 mmol/L (3.5-5.1); Sodium 140 mmol/L (136-145)
[2024-09-11 06:48] LABS: Anion Gap 8 (5-15); Carbon Dioxide 22 mmol/L (20-31)
[2024-09-11 06:53] LABS: BUN/Creatinine Ratio 10.5 (10.0-20.0); Blood Urea Nitrogen 6 mg/dL (9-23); Glucose 95 mg/dL (74-106)
[2024-09-11 07:22] LABS: Albumin 3.7 g/dL (3.2-4.8)
[2024-09-11 07:23] LABS: Bilirubin, Direct 0.1 mg/dL (<0.3); Bilirubin, Total 0.4 mg/dL (0.2-1.0); Phosphorus 3.1 mg/dL (2.4-5.1); Total Protein 6.3 g/dL (5.7-8.2)
[2024-09-11 07:30] LABS: INR 0.97 (0.9-1.15); Partial Thromboplastin Time 25.7 SEC (24.5-34.5); Prothrombin Time 10.3 sec (9.3-11.8)
--- NOTE | 2024-09-11 09:07 | DVH ---
CHEST RADIOGRAPH Indication:Syncope Technique: Single frontal view of the chest was obtained Comparison: None FINDINGS: Lines and Tubes: None Lungs: No focal consolidation. Pleura: No effusion.No pneumothorax. Cardiomediastinal contours: Unremarkable Bones: No acute osseous abnormality. IMPRESSION: 1. No acute cardiopulmonary disease. HS:Y
--- NOTE | 2024-09-11 12:33 | DVH ---
INDICATION: Menorrhagia TECHNIQUE: Multiple real-time grayscale transabdominal and transvaginal sonographic images along with color and duplex Doppler of the uterus and ovaries were obtained. COMPARISON: None FINDINGS: The uterus measures 8.2 x 4.6 x 5. cm. The endometrial stripe measures 0.6 cm. The right ovary measures 3.4 x 2.4 x 2.8 cm. The left ovary measures 3.0 x 2.1 x 2.0 cm. Subsequent color and duplex Doppler interrogation of the ovaries demonstrated symmetric vascular flow to both ovaries, though this does not exclude the possibility of torsion due to the dual blood suppl y. IMPRESSION: 1. Grossly unremarkable pelvic ultrasound.
--- NOTE | 2024-09-11 13:52 | DVH ---
Carotid Duplex Date: 09/11/2024 08:56 AM Clinical History: Syncope Comparison: None Technique: Duplex Doppler evaluation of the extracranial carotid and vertebral arteries including color Doppler and spectral/pulsed waveform analysis was performed. Findings: RIGHT SIDE: The peak systolic velocities are 65 cm/s in the distal CCA and 94 cm/s in the proximal ICA.The ICA/CC A ratio is less than 2. The external carotid artery is patent with peak systolic velocity of 81 cm/s proximally. There is appropriate antegrade flow in the right vertebral artery. LEFT SIDE: The peak systolic velocities are 105 cm/s in the distal CCA and 101 cm/s in the proximal ICA.. The I CA/CCA ratio is normal. The external carotid artery is patent with peak systolic velocity of 65 cm/s proximally. There is appropriate antegrade flow in the left vertebral artery. IMPRESSION: 1. No hemodynamically significant stenosis noted in the right carotid system. 2. No hemodynamically significant stenosis noted in the left carotid system. 3. Reference: Radiology 2003; [id number] HS:Y
--- NOTE | 2024-09-11 15:21 | DVHSR ---
APPROVED REPORT EXAM: Two-dimensional and M-mode echocardiogram with Doppler and color Doppler. Blood Pressure: 100/56 mmHg INDICATION Syncope RISK FACTORS Height: 5'5", Weight: 180 DIMENSIONS LVDd4.8 (3.8-5.7cm)LA (2D)4.1 (1.9-4.0cm)Aortic Root3.1 (2.0-3.7cm) LVDs3.0 (2.5-4.0cm)LA (MM) (1.9-4.0cm)Aortic Cusp Exc2.0 (1.5-2.0cm) EF (%) 68.0 (55-70%)Rt. Atrium3.3 (1.9-4.0cm)Asc. Aorta3.1 cm IVSd0.8 (0.7-1.1cm)RV (D) (1.8-2.4cm) PWd0.6 (0.7-1.1cm) Mitral Valve MitralMitral Stenosis E wave0.77m/sMV Mean GR.mmHg A wave0.60m/sMV Peak GR.mmHg E/A ratio1.32D MVAcm2 DECEL [id number] 1/2 Timems Aortic Valve Aortic ValveAortic Stenosis V11.38m/Otilia Mean GR.4mmHg V21.43m/Otilia Peak GR.8mmHg LVOT Diameter2.1 (1.8-2.4cm)Doppler AVA3.34cm2 Pulmonic Valve V20.81m/s Conclusion Normal left ventricular size and dimension. Normal left ventricular systolic function estimated ejec tion fraction 55%. Normal diastolic function. Normal right ventricular size and dimension. Normal right ventricular systolic function. Normal biatrial size and dimension. Normal aortic valve structure and function. Normal mitral valve structure and function. Normal tricuspid valve structure and function. The pulmonary valve is grossly normal. No pericardial effusion.
[2024-09-11] MEDS ORDERED: IOHEXOL 350 MG/ML 100ML IJ ONE (15:31)
--- NOTE | 2024-09-11 16:02 | DVH ---
EXAM: CT CT ANGIO NECK CONTRAST HISTORY: syncope COMPARISON: None TECHNIQUE: CTA imaging of the head was performed through the [place] [facility] [place] following the uneventf ul administration of intravenous contrast. Sagittal and coronal reformatted images were obtained from the source data. 3D/MIP post-processing of the source data set was performed and reviewed by the rad iologist. Radiation Dose Information: CT Dose: CTDI volume is 28.47 mGy. Dose-length product is 689.2 mGy*cm All CT scans at this medical facility are performed using dose modulation techniques as appropriate t o a performed exam including the following: Automated exposure control was utilized; adjustment of th e MA and/or KV according to patient size; and use of iterative reconstruction technique. FINDINGS: CTA Neck: Aortic Arch: Unremarkable conventional branching. Right brachiocephalic artery: Unremarkable. Right carotid artery: Unremarkable. Right subclavian artery: Unremarkable. Right vertebral artery: Unremarkable. Left carotid artery: Unremarkable. Left subclavian artery: Unremarkable. Left vertebral artery: Unremarkable. There is no evidence for soft tissue neck mass or pathologic lymphadenopathy. Aerodigestive tract gr ossly appears unremarkable. Lung apices are clear. Osseous structures appear unremarkable. IMPRESSION: 1. There is no hemodynamically significant stenosis in the cervical segments of the carotid and verte bral arteries. HS:Y
[2024-09-11 16:54] LABS: Urine Bacteria None Seen /hpf (None Seen)
--- NOTE | 2024-09-11 17:05 | DVHINCON2 ---
Date of service: Sep 11, 2024 Reason for Consultation menorrhagia History of Present Illness 33yo female admitted for syncope and consultation requested by medicine for menorrhagia. Pt reports that she is currently menstruating. 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 Flow is heavy and passes clots. Uses 9-10 maxi pads per day. Pain 10/10 during menses. Last pap was 2 years ago, normal per pt, but has hx of +HPV. Pt reports pain with sex in all positions. Has used nexplanon control in the past, but gained weight. Not currently on control as they are trying to conceive. Past Medical History hyperlipidemia, not on meds anxiety depression Past Surgical History right salpingectomy in 2018 Family History mother: ovarian cancer, menorrhagia, T2DM father: T2DM Social History denies alcohol or drug use, lives with partner and children Patient Family History: Diabetes mellitus G8 FATHER FH: cancer Allergies: Coded Allergies: Acetaminophen (Verified Allergy, Unknown, 05/16/21) Hydrocodone (Verified Allergy, Unknown, 05/16/21) No Known Drug Allergy (Unverified Allergy, Unknown, 01/02/23) Home Meds none Current Medications see med list by medicine dept Review of Systems Constitutional: No: Fever, Chills, Sweats, Weakness, Malaise, Other Eyes: No: Pain, Vision change, Conjunctivae inflammation, Eyelid inflammation, Other, Redness ENT: No: Ear pain, Ear discharge, Nose pain, Nose discharge, Nose congestion, Mouth pain, Mouth swelling, Throat pain, Throat swelling, Other Respiratory: No: Cough, Dry, Shortness of breath, SOB with excertion, Wheezing, Hemoptysis, Pleuritic Pain, Sputum, Wheezing, Other Cardiovascular: No: Chest Pain, Palpitations, Orthopnea, Paroxysmal Noc. Dyspnea, Edema, Lt Headedness, Other Gastrointestinal: No: Nausea, Vomiting, Abdominal Pain, Diarrhea, Constipation, Melena, Hematochezia, Other Genitourinary: No Dysuria, No Frequency, No Incontinence, No Hematuria, No Retention, No Other Musculoskeletal: No: other, neck pain, shoulder pain, arm pain, back pain, hand pain, leg pain, foot pain Skin: No: Rash, Lesions, Jaundice, Bruising, Other Neurological: No: Weakness, Numbness, Incoordination, Change in speech, Confusion, Seizures, Other Vital Signs Vital Signs Date Time Temp Pulse Resp B/P (MAP) Pulse Ox O2 Delivery O2 Flow Rate FiO2 09/11/24 16:32 98.3 82 16 111/65 (80) 99 98.3 09/11/24 08:10 Room Air* 0 21 Physical Exam General: flat affect Pelvic exam: External genitalia without erythema. Scant vaginal bleeding noted. Uterus is noted to be of normal size and nontender. No masses are palpated. The adnexa are without masses or tenderness. Labs/Diagnostic Data [place] [id number] Ph: [phone] DIAGNOSTIC IMAGING Diagnostic Imaging Report : [id number] Signed PATIENT: BENITEZ FLOWERSCT: [id number] UNIT: [id number] : 1990 LOC: [facility] ROOM / BED: [address] [place] [address] AGE / SEX: 33 / F ADM STATUS: ADM IN SERVICE 1113 ORDERING PHYSICIAN: LESTER RIVERS RESIDENT PROCEDURE(s): PELUS - PELVIC REASON: Metrorrhagia ORDER NUMBER(s): [id number], ACCESSION NUMBER(s): [id number] INDICATION: Menorrhagia TECHNIQUE: Multiple real-time grayscale transabdominal and transvaginal sonographic images along with color and duplex Doppler of the uterus and ovaries were obtained. COMPARISON: None FINDINGS: The uterus measures 8.2 x 4.6 x 5. cm. The endometrial stripe measures 0.6 cm. The right ovary measures 3.4 x 2.4 x 2.8 cm. The left ovary measures 3.0 x 2.1 x 2.0 cm. Subsequent color and duplex Doppler interrogation of the ovaries demonstrated symmetric vascular flow to both ovaries, though this does not exclude the possibility of torsion due to the dual blood supply. IMPRESSION: 1. Grossly unremarkable pelvic ultrasound. ATED BY: JARRETT CASTRO MD DICTATED DATE/TIME: 09/11/24 1231 SIGNED BY: JARRETT CASTRO MD SIGNED DATE/TIME: 09/11/24 1231 CC: Labs Test 09/11/24 16:53 09/11/24 08:01 09/11/24 05:41 09/10/24 16:28 Range/Units Lactic Acid Level 1.2 0.4-2.0 mmol/L Ammonia 25 11-32 umol/L White Blood Count 3.4 L 4.4-10.8 10^3/uL Red Blood Count 4.12 4.0-5.20 10^6/uL Hemoglobin 11.5 L 12.2-16.2 g/dL Hematocrit 34.4 L 36.0-46.0 % Mean Corpuscular Volume 83.4 80.0-100.0 fL Mean Corpuscular Hemoglobin 27.9 L 28.0-32.0 pg Mean Corpuscular Hemoglobin Concent 33.5 32.0-36.0 g/dL Red Cell Distribution Width 13.8 11.8-14.3 % Platelet Count 140 140-450 10^3/uL Mean Platelet Volume 9.6 6.9-10.8 fL Neutrophils (%) (Auto) 61.1 37.0-80.0 % Lymphocytes (%) (Auto) 30.9 10.0-50.0 % Monocytes (%) (Auto) 6.1 0.0-12.0 % Eosinophils (%) (Auto) 1.3 0.0-7.0 % Basophils (%) (Auto) 0.6 0.0-2.0 % Neutrophils # (Auto) 2.1 1.6-8.6 10 ^3/uL Lymphocytes # (Auto) 1.1 0.4-5.4 10 ^3/uL Monocytes # (Auto) 0.2 0-1.3 10 ^3/uL Eosinophils # (Auto) 0 0-0.8 10 ^3/uL Basophils # (Auto) 0 0-0.2 10 ^3/uL Nucleated Red Blood Cells 0.0 % Prothrombin Time 10.3 9.3-11.8 sec Prothrombin Time INR 0.97 0.9-1.15 Activated Partial Thromboplast Time 25.7 24.5-34.5 SEC Sodium Level 140 136-145 mmol/L Potassium Level 3.7 3.5-5.1 mmol/L Chloride Level 110 H 98-107 mmol/L Carbon Dioxide Level 22 20-31 mmol/L Anion Gap 8 5-15 Blood Urea Nitrogen 6 L 9-23 mg/dL Creatinine 0.57 0.550-1.02 mg/dL Glomerular Filtration Rate Calc 123 >90 mL/min BUN/Creatinine Ratio 10.5 10.0-20.0 Serum Glucose 95 74-106 mg/dL Hemoglobin A1c 5.5 <5.7 % A1C Calcium Level 9.0 8.7-10.4 mg/dL Phosphorus Level 3.1 2.4-5.1 mg/dL Magnesium Level 2.0 1.6-2.6 mg/dL Total Bilirubin 0.4 0.2-1.0 mg/dL Direct Bilirubin 0.1 <0.3 mg/dL Aspartate Amino Transferase (AST) 18 13-40 U/L Alanine Aminotransferase (ALT) 29 7-40 U/L Alkaline Phosphatase 79 46-116 U/L Troponin I High Sensitivity < 3 L </=34 ng/L B-Type Natriuretic Peptide 25.52 0-100 pg/mL Total Protein 6.3 5.7-8.2 g/dL Albumin 3.7 3.2-4.8 g/dL Triglycerides Level 76 < 150 mg/dL Cholesterol Level 161 < 200 mg/dL LDL Cholesterol 106 H < 100 mg/dL HDL Cholesterol 48 40-59 mg/dL Vitamin B12 Level 320 211-911 pg/mL Vitamin D 25-Hydroxy 14.5 L 30.0-100 ng/mL Thyroid Stimulating Hormone (TSH) 1.80 0.55-4.78 uIU/mL Beta HCG, Quantitative 0.3 L 1.5-4.2 mIU/mL Plasma/Serum Blood Alcohol 3.7 <10 mg/dL Plan 1. Menorrhagia -f/u with Annia Lopez CNM outpatient at 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 S/P exploratory laparoscopy & right salpingectomy for ectopic in 2018 3. Obesity 4. Anxiety/Depression -Tele psych consult ordered by medicine *Thank you for this consultation, pt will by seen outpatient at [facility] [place] supervisor office next week. Case reviewed with Dr. Villalba who agrees and confirms the plan. Plan discussed with: Patient, Spouse Problems List: (1) Menorrhagia with irregular cycle Status: Acute MARIANA LOPEZ CNM Sep 11, 2024 17:05
[2024-09-11 17:14] LABS: Urine Blood 3+ /uL (Negative); Urine Clarity Turbid (Clear); Urine Color Colorless (Yellow); Urine Protein, UAD 1+ (Negative); Urine Urobilinogen Normal (Negative); Urine WBC 19 /hpf (0 - 5); Urine pH 7.5 (5.0-9.0)
[2024-09-11 17:16] LABS: Amphetamine Screen, Urine Neg (NEGATIVE); Benzodiazephine Screen, Urine Neg (NEGATIVE)
[2024-09-11 17:17] LABS: Barbiturate Scree,Urine Neg (NEGATIVE); Cannabinoid Screen, Urine Neg (NEGATIVE); Cocaine Screen, Urine Neg (NEGATIVE); Opiate Scree,Urine Neg (NEGATIVE); Phencyclidine Screen, Urine Neg (NEGATIVE)
[2024-09-11 17:29] LABS: Urine Specific Gravity 1.045 (1.001-1.035)
--- NOTE | 2024-09-11 17:55 | DVHINCON2 ---
Family History: Diabetes mellitus G8 FATHER FH: cancer Allergies: Coded Allergies: Acetaminophen (Verified Allergy, Unknown, 05/16/21) Hydrocodone (Verified Allergy, Unknown, 05/16/21) No Known Drug Allergy (Unverified Allergy, Unknown, 01/02/23) Vital Signs Vital Signs Date Time Temp Pulse Resp B/P (MAP) Pulse Ox O2 Delivery O2 Flow Rate FiO2 09/11/24 16:32 98.3 82 16 111/65 (80) 99 98.3 09/11/24 08:10 Room Air* 0 21 Labs/Diagnostic Data Labs Test 09/11/24 16:53 09/11/24 08:01 09/11/24 05:41 09/10/24 16:28 Range/Units Urine Color Colorless Yellow Urine Clarity Turbid H Clear Urine pH 7.5 5.0-9.0 Urine Specific [place] 1.045 H 1.001-1.035 Urine Protein 1+ H Negative Urine Ketones Negative Negative Urine Blood 3+ H Negative /uL Urine Nitrite Negative Negative Urine Bilirubin Negative Negative Urine Urobilinogen Normal Negative mg/dL Urine Leukocyte Esterase Trace Negative /uL Urine RBC 4217 0 - 4 /hpf Urine WBC 19 0 - 5 /hpf Urine Squamous Epithelial Cells Few <5 /hpf Urine Bacteria None seen None Seen /hpf Urine Glucose Normal Normal mg/dL Urine Opiates Screen Neg NEGATIVE Urine Fentanyl Screen Neg NEGATIVE Urine Barbiturates Screen Neg NEGATIVE Urine Phencyclidine Screen Neg NEGATIVE Urine Amphetamines Screen Neg NEGATIVE Urine Benzodiazepines Screen Neg NEGATIVE Urine Cocaine Screen Neg NEGATIVE Urine Cannabinoids Screen Neg NEGATIVE Lactic Acid Level 1.2 0.4-2.0 mmol/L Ammonia 25 11-32 umol/L White Blood Count 3.4 L 4.4-10.8 10^3/uL Red Blood Count 4.12 4.0-5.20 10^6/uL Hemoglobin 11.5 L 12.2-16.2 g/dL Hematocrit 34.4 L 36.0-46.0 % Mean Corpuscular Volume 83.4 80.0-100.0 fL Mean Corpuscular Hemoglobin 27.9 L 28.0-32.0 pg Mean Corpuscular Hemoglobin Concent 33.5 32.0-36.0 g/dL Red Cell Distribution Width 13.8 11.8-14.3 % Platelet Count 140 140-450 10^3/uL Mean Platelet Volume 9.6 6.9-10.8 fL Neutrophils (%) (Auto) 61.1 37.0-80.0 % Lymphocytes (%) (Auto) 30.9 10.0-50.0 % Monocytes (%) (Auto) 6.1 0.0-12.0 % Eosinophils (%) (Auto) 1.3 0.0-7.0 % Basophils (%) (Auto) 0.6 0.0-2.0 % Neutrophils # (Auto) 2.1 1.6-8.6 10 ^3/uL Lymphocytes # (Auto) 1.1 0.4-5.4 10 ^3/uL Monocytes # (Auto) 0.2 0-1.3 10 ^3/uL Eosinophils # (Auto) 0 0-0.8 10 ^3/uL Basophils # (Auto) 0 0-0.2 10 ^3/uL Nucleated Red Blood Cells 0.0 % Prothrombin Time 10.3 9.3-11.8 sec Prothrombin Time INR 0.97 0.9-1.15 Activated Partial Thromboplast Time 25.7 24.5-34.5 SEC Sodium Level 140 136-145 mmol/L Potassium Level 3.7 3.5-5.1 mmol/L Chloride Level 110 H 98-107 mmol/L Carbon Dioxide Level 22 20-31 mmol/L Anion Gap 8 5-15 Blood Urea Nitrogen 6 L 9-23 mg/dL Creatinine 0.57 0.550-1.02 mg/dL Glomerular Filtration Rate Calc 123 >90 mL/min BUN/Creatinine Ratio 10.5 10.0-20.0 Serum Glucose 95 74-106 mg/dL Hemoglobin A1c 5.5 <5.7 % A1C Calcium Level 9.0 8.7-10.4 mg/dL Phosphorus Level 3.1 2.4-5.1 mg/dL Magnesium Level 2.0 1.6-2.6 mg/dL Total Bilirubin 0.4 0.2-1.0 mg/dL Direct Bilirubin 0.1 <0.3 mg/dL Aspartate Amino Transferase (AST) 18 13-40 U/L Alanine Aminotransferase (ALT) 29 7-40 U/L Alkaline Phosphatase 79 46-116 U/L Troponin I High Sensitivity < 3 L </=34 ng/L B-Type Natriuretic Peptide 25.52 0-100 pg/mL Total Protein 6.3 5.7-8.2 g/dL Albumin 3.7 3.2-4.8 g/dL Triglycerides Level 76 < 150 mg/dL Cholesterol Level 161 < 200 mg/dL LDL Cholesterol 106 H < 100 mg/dL HDL Cholesterol 48 40-59 mg/dL Vitamin B12 Level 320 211-911 pg/mL Vitamin D 25-Hydroxy 14.5 L 30.0-100 ng/mL Thyroid Stimulating Hormone (TSH) 1.80 0.55-4.78 uIU/mL Beta HCG, Quantitative 0.3 L 1.5-4.2 mIU/mL Plasma/Serum Blood Alcohol 3.7 <10 mg/dL LESTER RIVERS RESIDENT Sep 11, 2024 17:55
[2024-09-11] MEDS: KETOROLAC TROMETH 30 MG/ML 1ML VIAL IV PRN (18:44)
--- NOTE | 2024-09-11 19:34 | DVHPNRES ---
Progress Note Date Seen: Sep 11, 2024 Resident Creating Document: VALENTINA COREY TAMIA Has the PT tested + for MRSA If YES, has PT been informed?: No Medical Necessity Reason Pt with a Central, PICC or Fol: No Subjective Review of Systems This is a 33-year-old female with a past medical history of depression, brought to the hospital after a loss of consciousness. Per EMS, the patient was found by bystanders on the ground near a street crossing after an unwitnessed syncopal episode. The patient does not remember the events aside from dropping off her kids and walking back towards the car. She had a previous syncopal episode in April 2024, at which time cardiac and neurology workups, including head CT scan, brain MRI, CT angiogram, transvaginal ultrasound, and abdominopelvic CT scan, were normal. The patient also complained of decreased sleep and oral intake recently for 1-2 months. She denies chest pain, headache, dizziness, diaphoresis, shortness of breath, abdominal pain, nausea, vomiting, fever, or chills. PMHx: History of depression (diagnosed during teenage years, stopped taking medication 15 years ago), hyperlipidemia PSHx: Right salpingectomy due to ruptured ectopic in 2018 Family History: Reports cancer in mother (type unknown) Social History: Lives with family, denies smoking, drink occasional, or any other drug use Home Medication: None Allergic History: Acetaminophen and hydrocodone The patient was seen and examined at the bedside. She is complaining of right flank and right knee pain. General: patient denies fever, fatigue, weaknes, sweating HEENT: No headaches, visiual changes, hearing loss, tinnitus, nasal congestion and discharge, and sore throat. Cardiovascular: Denies chest pain, palpitations, dyspnea on exertion, orthopnea, or claudication. Respiratory: No cough, and wheezing. Gastrointestinal: Denies nausea, vomiting, dysphagia, odynophagia, heartburn, abdominal pain, flatulence, bloating, diarrhea, constipation, change in stool, or blood in stool. Genitourinary: No dysuria, hematuria, discharge, frequency, urgency, nocturia, incontinence, and urinary retention. Endocrine: No heat or cold intolerance, polydipsia, polyuria, and polyphagia. Neurological: No dizziness, extremity weakness and numbness, tremors, gait disturbance, seizures, and memory impairment. Psychiatric: Reports decreased sleep and oral intake since 1-2 months Musculoskeletal: Reports right flank and right knee pain Hematologic/Lymphatic: Denies easy bruising, bleeding tendencies, or lymph node enlargement. Patient reports: No new complaints Changes from previous H/P or p: No Changes Objective vital signs Vital Sign Date Time Temp Pulse Resp B/P (MAP) Pulse Ox O2 Delivery O2 Flow Rate FiO2 09/11/24 16:32 98.3 82 16 111/65 (80) 99 98.3 09/11/24 08:10 Room Air* 0 21 Total Intake and Output 09/10/24 09/10/24 09/11/24 15:00 23:00 07:00 Intake Total 1000 ml 1000 ml 200 ml Output Total 250 ml Balance 1000 ml 1000 ml -50 ml medications Current Medications Medications Dose Ordered Sig/[place] Route Start Time Stop Time Status Last Admin Dose Admin Ondansetron HCl 4 mg Q4HP PRN IV 09/10/24 16:15 Ketorolac Tromethamine 15 mg Q6HPRN PRN IV 09/10/24 16:15 09/15/24 16:14 09/11/24 18:44 15 MG Nitroglycerin 0.4 mg Q5MINP PRN SL 09/10/24 16:15 Morphine Sulfate 2 mg Q30M PRN IV 09/10/24 16:15 Hold Examination General Appearance: Alert, Oriented X3, Cooperative, No acute distress HEENT: Atraumatic, PERRLA, EOMI, Mucous membrane moist/pink Respiratory: Clear to auscultation, Normal air movement Cardiovascular: Regular rate, Normal S1, Normal S2, No murmurs, no chest wall tenderness Abdominal: Normal bowel sounds, Soft, No tenderness, No hepatospenomegaly, No masses Extremities: Bruises on the right flank, an abrasion on lateral surface of right knee Skin: No rashes, No breakdown, No significant lesion Neuro: Normal gait, Normal speech, Strength at 5/5 X4 ext, Normal tone, Sensation intact, Cranial nerves 3-12 NL, Reflexes 2+ Psych/Mental Status: Blunted affect laboratory and microbiology Laboratory Tests 09/11/24 05:41 Test 09/11/24 05:41 Range/Units Serum Glucose 95 74-106 mg/dL Labs and/or images reviewed: Labs reviewed by me, Image(s) reviewed by me Problem List/Assessment/Plan Problem List/Assessment/Plan Loss of consciousness likely due to cardiac syncope EKG shows normal sinus rhythm Echocardiogram studies normal Cardiology is on the board Head CT scan is normal Head and neck CT angiogram is normal History of depression Has stopped taking medicine 15 years back Reports decreased sleep and oral intake since 1-2 months Telepsych consult History of Right salpingectomy due to ruptured ectopic in 2018 Menorrhagia and irregular periods since salpingectomy Pelvic ultrasound is not Geophysical Engineer is on the board, recommended outpatient follow up Right knee pain There is an covered abrasion with crusted blood and the lateral surface of right knee X-ray of the right knee Obesity Patient was consulted for lifestyle changes including ALT food intake and e xercise for weight loss Hyperchloremia Monitoring Microscopic hematuria Urinalysis shows turbid urine with RBC raised 4217 Likely contaminated due to concurrent period Dyslipidemia LDL cholesterol is raised at 106 Patient was consulted for lifestyle changes including ALT food intake and e xercise for weight loss Vitamin-D deficiency Supplemented //ectopics excluded Beta hCG is 0.3 DVT prophylaxis Patient is on her period, anticoagulant is not recommended SCD Code status Full Code Case discussed with Dr. Armijo Plan discussed with: Patient, Spouse, Other (RN) My Orders My Orders Orders - VALENTINA COREY RESDIENT Procedure Category Date Status Time Electrocardigram EKG 09/11/24 Logged 09:20 *Tele Psych Consult CONS 09/11/24 Transmitted 13:58 Orthostatic Vital ORDERS 09/11/24 Transmitted Signs 13:[address]ck Cont[address] CT 09/11/24 Resulted 13:58 Date of Service: Sep 11, 2024 Billing Provider: JOSUÉ DOMINGUEZ MD Common Visit Codes: [id number] INP/OBS CARE(HIGH) VALENTINA COREY RESDIENT Sep 11, 2024 19:34 JOSUÉ DOMINGUEZ MD Sep 12, 2024 19:04
--- NOTE | 2024-09-11 21:46 | DVHINCON2 ---
Date Seen: Sep 11, 2024 Referring Physician Hailey Galeano NP Reason for Consultation Syncope History of Present Illness Maria Esther Starkey is a 33-year-old female patient who presents to ED brought by EMS due to episode of loss of consciousness with no prodromes presenting right knee and flank trauma, patient did not present ad integrum recuperation, presented blurry vision, and bystander reported generalized shaking. Patient had similar episode in 04/2024, where she was evaluated by Cardiology and Neurology specialist, ruling out severe pathology. Patient mentions metrorrhagia which normally last three weeks, and one week with no menstruation, she also says that her urine output during her periods increases, last syncopal episode was during her menstruation as well. Denies palpitation, chest pain, dyspnea, nausea, vomiting, diarrhea, constipation, diaphoresis, sick contacts, recent travel and motor or sensory deficits. 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 Surgical history: Right salpingectomy in 2018 Family history: Mother had ovarian cancer Social history: Lives in [place] with family ( and four offsprings). Denies tobacco, alcohol and other drug abuse. Allergies: Denies (per EMR acetaminophen, hydrocodone) Home medication: Denies Patient seen and examined at bedside. Patient is currently lethargic, she is currently on her period. Past Medical History Per HPI Past Surgical History Per HPI Family History: Diabetes mellitus G8 FATHER FH: cancer Family History Per HPI Social History Per HPI Allergies: Coded Allergies: Acetaminophen (Verified Allergy, Unknown, 05/16/21) Hydrocodone (Verified Allergy, Unknown, 05/16/21) No Known Drug Allergy (Unverified Allergy, Unknown, 01/02/23) Current Medications Current Medications Medications (Trade) Dose Ordered Sig/Kamille Route PRN Reason Start Time Stop Time Status Last Admin Ergocalciferol (Vitamin D 50,000 Unit) 50,000 unit Q7D PO 09/11/24 19:30 Review of Systems Per HPI Vital Signs Vital Signs Date Time Temp Pulse Resp B/P (MAP) Pulse Ox O2 Delivery O2 Flow Rate FiO2 09/11/24 16:32 98.3 82 16 111/65 (80) 99 98.3 09/11/24 08:10 Room Air* 0 21 Physical Exam Patient lying in bed, in no acute distress General: Lucid, afebrile, mucosae are moist Cardiovascular: Normal S1 and S2. No murmurs, gallops or rubs Respiratory: Normal ventilation mechanics. Clear lung sounds on auscultation Abdomen: Soft, nontender, no organomegaly, normal bowel sounds MSK/skin: Mobilizes 4 limbs. Skin is dry and warm Neurological: Oriented in 3 spheres. No motor no sensitive deficits. Pupils are isocoric and reactive Labs/Diagnostic Data Labs Test 09/11/24 16:53 09/11/24 08:01 09/11/24 05:41 09/10/24 16:28 Range/Units Urine Color Colorless Yellow Urine Clarity Turbid H Clear Urine pH 7.5 5.0-9.0 Urine Specific [place] 1.045 H 1.001-1.035 Urine Protein 1+ H Negative Urine Ketones Negative Negative Urine Blood 3+ H Negative /uL Urine Nitrite Negative Negative Urine Bilirubin Negative Negative Urine Urobilinogen Normal Negative mg/dL Urine Leukocyte Esterase Trace Negative /uL Urine RBC 4217 0 - 4 /hpf Urine WBC 19 0 - 5 /hpf Urine Squamous Epithelial Cells Few <5 /hpf Urine Bacteria None seen None Seen /hpf Urine Glucose Normal Normal mg/dL Urine Opiates Screen Neg NEGATIVE Urine Fentanyl Screen Neg NEGATIVE Urine Barbiturates Screen Neg NEGATIVE Urine Phencyclidine Screen Neg NEGATIVE Urine Amphetamines Screen Neg NEGATIVE Urine Benzodiazepines Screen Neg NEGATIVE Urine Cocaine Screen Neg NEGATIVE Urine Cannabinoids Screen Neg NEGATIVE Lactic Acid Level 1.2 0.4-2.0 mmol/L Ammonia 25 11-32 umol/L White Blood Count 3.4 L 4.4-10.8 10^3/uL Red Blood Count 4.12 4.0-5.20 10^6/uL Hemoglobin 11.5 L 12.2-16.2 g/dL Hematocrit 34.4 L 36.0-46.0 % Mean Corpuscular Volume 83.4 80.0-100.0 fL Mean Corpuscular Hemoglobin 27.9 L 28.0-32.0 pg Mean Corpuscular Hemoglobin Concent 33.5 32.0-36.0 g/dL Red Cell Distribution Width 13.8 11.8-14.3 % Platelet Count 140 140-450 10^3/uL Mean Platelet Volume 9.6 6.9-10.8 fL Neutrophils (%) (Auto) 61.1 37.0-80.0 % Lymphocytes (%) (Auto) 30.9 10.0-50.0 % Monocytes (%) (Auto) 6.1 0.0-12.0 % Eosinophils (%) (Auto) 1.3 0.0-7.0 % Basophils (%) (Auto) 0.6 0.0-2.0 % Neutrophils # (Auto) 2.1 1.6-8.6 10 ^3/uL Lymphocytes # (Auto) 1.1 0.4-5.4 10 ^3/uL Monocytes # (Auto) 0.2 0-1.3 10 ^3/uL Eosinophils # (Auto) 0 0-0.8 10 ^3/uL Basophils # (Auto) 0 0-0.2 10 ^3/uL Nucleated Red Blood Cells 0.0 % Prothrombin Time 10.3 9.3-11.8 sec Prothrombin Time INR 0.97 0.9-1.15 Activated Partial Thromboplast Time 25.7 24.5-34.5 SEC Sodium Level 140 136-145 mmol/L Potassium Level 3.7 3.5-5.1 mmol/L Chloride Level 110 H 98-107 mmol/L Carbon Dioxide Level 22 20-31 mmol/L Anion Gap 8 5-15 Blood Urea Nitrogen 6 L 9-23 mg/dL Creatinine 0.57 0.550-1.02 mg/dL Glomerular Filtration Rate Calc 123 >90 mL/min BUN/Creatinine Ratio 10.5 10.0-20.0 Serum Glucose 95 74-106 mg/dL Hemoglobin A1c 5.5 <5.7 % A1C Calcium Level 9.0 8.7-10.4 mg/dL Phosphorus Level 3.1 2.4-5.1 mg/dL Magnesium Level 2.0 1.6-2.6 mg/dL Total Bilirubin 0.4 0.2-1.0 mg/dL Direct Bilirubin 0.1 <0.3 mg/dL Aspartate Amino Transferase (AST) 18 13-40 U/L Alanine Aminotransferase (ALT) 29 7-40 U/L Alkaline Phosphatase 79 46-116 U/L Troponin I High Sensitivity < 3 L </=34 ng/L B-Type Natriuretic Peptide 25.52 0-100 pg/mL Total Protein 6.3 5.7-8.2 g/dL Albumin 3.7 3.2-4.8 g/dL Triglycerides Level 76 < 150 mg/dL Cholesterol Level 161 < 200 mg/dL LDL Cholesterol 106 H < 100 mg/dL HDL Cholesterol 48 40-59 mg/dL Vitamin B12 Level 320 211-911 pg/mL Vitamin D 25-Hydroxy 14.5 L 30.0-100 ng/mL Thyroid Stimulating Hormone (TSH) 1.80 0.55-4.78 uIU/mL Beta HCG, Quantitative 0.3 L 1.5-4.2 mIU/mL Plasma/Serum Blood Alcohol 3.7 <10 mg/dL Assessment Probable orthostatic syncope Metrorrhagia Dyslipidemia History of its socket status post right salpingectomy History of depression Plan/Recommendation Completed echocardiogram: LVEF 55%, normal diastolic function. Telemetry showed initially episode of sinus tachycardia on admission, now normalized with increased fluid intake and resolution of menstruation. Orthostatic vital signs obtained at bedside, within normal limits. Previous cardiological and neurological workup within normal limits in May 18, 2024. Repeat complementary workup is within normal limits as well in this occasion Consulted coin purse assembler since patient presented syncopal episode during her period, which is associated with menorrhagia and increase diuresis. Pelvic ultrasound is within normal limits, specialist recommends follow up as outpatient. Discussed plan with Dr. Turner, patient and nurses: Rule out cardiogenic etiology of syncope, most probably secondary to orthostatic syncope in context of increased diuresis in metrorrhagia. Recommend increase intake of fluids and evaluation by coin purse assembler specialist as outpatient. No further cardiological workup required during this admission. We will sign off the case. Please reconsult as needed, thank you. Plan discussed with: Patient, Spouse, Daughter, Other (Nurses) Date of Service: Sep 11, 2024 Billing Provider: RUDDY TURNER MD Cardiology Common Codes: [id number] INP/OBS CARE (High), [id number] CARE 30-74 MIN LESTER RIVERS RESIDENT Sep 11, 2024 21:46
[2024-09-11] MEDS: ERGOCALCIFEROL 50,000 UNIT(1.25MG) CAP PO SCH (22:10)
--- NOTE | 2024-09-11 22:30 | DVH ---
CLINICAL INDICATION: Knee trauma TECHNIQUE: XY R KNEE 2V XRAY Comparison: None FINDINGS/IMPRESSION: There is no evidence of acute fracture or dislocation. The visualized joint space is well maintained. The alignment is anatomical. There is no radiopaque foreign body.
[2024-09-12] VITALS (7 sets, daily range): BP systolic 95–129; BP diastolic 51–78; PULSE 56–90; RESP 16–20; TEMP 97.5–98.9; O2SAT 90–99
[2024-09-12 06:21] LABS: Anion Gap 8 (5-15); Carbon Dioxide 23 mmol/L (20-31); Chloride 110 mmol/L (98-107); Potassium 3.5 mmol/L (3.5-5.1); Sodium 141 mmol/L (136-145)
[2024-09-12 06:27] LABS: BUN/Creatinine Ratio 7.9 (10.0-20.0); Blood Urea Nitrogen 5 mg/dL (9-23); Glucose 95 mg/dL (74-106)
[2024-09-12 06:28] LABS: Basophils # (auto) 0 10 ^3/uL (0-0.2); Basophils % (auto) 0.6 % (0.0-2.0); Eosinophils # (auto) 0.1 10 ^3/uL (0-0.8); Eosinophils % (auto) 1.9 % (0.0-7.0); Hematocrit 35.4 % (36.0-46.0); Hemoglobin 11.8 g/dL (12.2-16.2); Lymphocytes # (auto) 1.1 10 ^3/uL (0.4-5.4); Lymphocytes % (auto) 38.5 % (10.0-50.0); Mean Corpuscular Hemoglobin 27.8 pg (28.0-32.0); Mean Corpuscular Hgb Conc. 33.4 g/dL (32.0-36.0); Mean Corpuscular Volume 83.4 fL (80.0-100.0); Monocytes # (auto) 0.2 10 ^3/uL (0-1.3); Monocytes % (auto) 7.1 % (0.0-12.0); Neutrophils # (auto) 1.5 10 ^3/uL (1.6-8.6); Neutrophils % (auto) 51.9 % (37.0-80.0); Nucleated Red Blood Cells % 0.1 %; Platelet Count (auto) 138 10^3/uL (140-450); Red Blood Cells 4.25 10^6/uL (4.0-5.20); Red Cell Distribution Width 14.1 % (11.8-14.3); White Blood Cell 2.9 10^3/uL (4.4-10.8)
[2024-09-12] MEDS: ONDANSETRON HCL 4 MG/2 ML VIAL IV PRN (08:37)
[2024-09-12] MEDS ORDERED: HYDROcodone-ACET 5/325MG TAB PO PRN (13:00)
--- NOTE | 2024-09-12 14:40 | DVH ---
Pelvis and right hip radiograph CLINICAL INDICATION: fall, right hip pain TECHNIQUE: 2 radiographic views of the pelvis and right were obtained. Comparison: XY R KNEE 2V XRAY on DOS: 09/11/24 FINDINGS: There is no evidence of acute fracture or dislocation. The visualized joint space is well maintained. The alignment is anatomical. Soft tissues are unremarkable. IMPRESSION: No acute fracture or dislocation.
[2024-09-12 17:49] LABS: Basophils # (auto) 0 10 ^3/uL (0-0.2); Basophils % (auto) 0.7 % (0.0-2.0); Eosinophils # (auto) 0 10 ^3/uL (0-0.8); Eosinophils % (auto) 1.4 % (0.0-7.0); Hemoglobin 12.1 g/dL (12.2-16.2); Mean Corpuscular Hgb Conc. 33.7 g/dL (32.0-36.0); Mean Corpuscular Volume 83.2 fL (80.0-100.0); Monocytes # (auto) 0.2 10 ^3/uL (0-1.3); Monocytes % (auto) 6.3 % (0.0-12.0); Neutrophils # (auto) 2.2 10 ^3/uL (1.6-8.6); Neutrophils % (auto) 62.6 % (37.0-80.0); Nucleated Red Blood Cells % 0.1 %; Platelet Count (auto) 150 10^3/uL (140-450); Red Blood Cells 4.33 10^6/uL (4.0-5.20); Red Cell Distribution Width 14.1 % (11.8-14.3); White Blood Cell 3.5 10^3/uL (4.4-10.8)
--- NOTE | 2024-09-12 18:43 | DVHPNRES ---
Progress Note Date Seen: Sep 12, 2024 Resident Creating Document: VALENTINA COREY TAMIA Has the PT tested + for MRSA If YES, has PT been informed?: No Medical Necessity Reason Pt with a Central, PICC or Fol: No Subjective Review of Systems Patient seen and examined at the bedside. Patient is still has heavy period Bleeding. Patient also complained of nausea and vomiting Patient reports: No new complaints Objective vital signs Vital Sign Date Time Temp Pulse Resp B/P (MAP) Pulse Ox O2 Delivery O2 Flow Rate FiO2 09/12/24 16:34 98.4 56 18 118/59 (78) 91 98.4 09/12/24 08:00 Room Air* 0 21 Total Intake and Output 09/11/24 09/11/24 09/12/24 15:00 23:00 07:00 Intake Total 1300 ml 480 ml Balance 1300 ml 480 ml medications Current Medications Medications Dose Ordered Sig/Kamille Route Start Time Stop Time Status Last Admin Dose Admin Ondansetron HCl 4 mg Q4HP PRN IV 09/10/24 16:15 09/12/24 08:37 4 MG Ketorolac Tromethamine 15 mg Q6HPRN PRN IV 09/10/24 16:15 09/15/24 16:14 09/12/24 08:37 15 MG Nitroglycerin 0.4 mg Q5MINP PRN SL 09/10/24 16:15 Morphine Sulfate 2 mg Q30M PRN IV 09/10/24 16:15 Hold Ergocalciferol 50,000 unit Q7D PO 09/11/24 19:30 09/11/24 22:10 50,000 UNIT Acetaminophen/ Hydrocodone Bitart 1 tab Q4HPRN PRN PO 09/12/24 13:00 Hold Examination General Appearance: Alert, Oriented X3, Cooperative, No acute distress HEENT: Atraumatic, PERRLA, EOMI, Mucous membrane moist/pink Respiratory: Clear to auscultation, Normal air movement Cardiovascular: Regular rate, Normal S1, Normal S2, No murmurs, no chest wall tenderness Abdominal: Normal bowel sounds, Soft, No tenderness, No hepatospenomegaly, No masses Extremities: Bruises on the right flank, an abrasion on lateral surface of right knee Skin: No rashes, No breakdown, No significant lesion Neuro: Normal gait, Normal speech, Strength at 5/5 X4 ext, Normal tone, Sensation intact, Cranial nerves 3-12 NL, Reflexes 2+ Psych/Mental Status: Blunted affect laboratory and microbiology Laboratory Tests 09/12/24 17:32 09/12/24 05:26 Test 09/12/24 05:26 Range/Units Serum Glucose 95 74-106 mg/dL Labs and/or images reviewed: Labs reviewed by me, Image(s) reviewed by me Problem List/Assessment/Plan Problem List/Assessment/Plan Loss of consciousness likely due to cardiac syncope EKG shows normal sinus rhythm Echocardiogram studies normal Cardiology is on the board, recommended that syncope is probably due to orthostatic hypotension Head CT scan is normal Head and neck CT angiogram is normal History of depression Has stopped taking medicine 15 years back Reports decreased sleep and oral intake since 1-2 months Telepsych consulted, patient is refusing to speak with the psychiatric History of Right salpingectomy due to ruptured ectopic in 2018 Menorrhagia and irregular periods since salpingectomy Patient is still has heavy period bleeding, also complained of nausea and vomiting Pelvic ultrasound is normal Statistical Developer is on the board, recommended outpatient follow up Right knee pain There is an covered abrasion with crusted blood and the lateral surface of right knee X-ray of the right knee is normal Right hip x-ray Obesity Patient was consulted for lifestyle changes including ALT food intake and e xercise for weight loss Hyperchloremia Monitoring Microscopic hematuria Urinalysis shows turbid urine with RBC raised 4217 Likely contaminated due to concurrent period Dyslipidemia LDL cholesterol is raised at 106 Patient was consulted for lifestyle changes including ALT food intake and e xercise for weight loss Vitamin-D deficiency Supplemented //ectopics excluded Beta hCG is 0.3 DVT prophylaxis Patient is on her period, anticoagulant is not recommended SCD Code status Full Code Case discussed with Dr. Armijo Plan discussed with: Patient, Spouse, Daughter, Son, Other (RN) My Orders My Orders Orders - VALENTINA COREY Procedure Category Date Status Time Ergocalciferol PHA 09/11/24 In Process (Vitamin D 50,000 19:30 R Knee 2v Xray XY 09/11/24 Resulted 20:05 * Wound Consult CONS 09/11/24 Transmitted R Hip 1v Xray XY 09/12/24 Resulted 12:49 Hydrocodone-Acet PHA 09/12/24 In Process 5/325mg Tab ([place] 13:00 Apply: JULISA 09/12/24 In Process 10:05 Date of Service: Sep 12, 2024 Billing Provider: JOSUÉ DOMINGUEZ MD Common Visit Codes: [id number] INP/OBS CARE(HIGH) RODOLFOBARBARAJESUSRODOLFOJOSE CARLOS RESDIMUKUL Sep 12, 2024 18:43 JOSUÉ DOMINGUEZ MD Sep 12, 2024 19:13
[2024-09-13 01:00] VITALS: BP 108/72; PULSE 73; RESP 18; TEMP 98.4; O2SAT 96
[2024-09-13 05:00] VITALS: BP 114/72; PULSE 80; RESP 16; TEMP 98.2; O2SAT 98
[2024-09-13 06:48] LABS: Basophils # (auto) 0 10 ^3/uL (0-0.2); Basophils % (auto) 0.5 % (0.0-2.0); Eosinophils # (auto) 0 10 ^3/uL (0-0.8); Eosinophils % (auto) 1.3 % (0.0-7.0); Hematocrit 36.8 % (36.0-46.0); Hemoglobin 12.4 g/dL (12.2-16.2); Lymphocytes % (auto) 31.1 % (10.0-50.0); Mean Corpuscular Hemoglobin 27.8 pg (28.0-32.0); Mean Corpuscular Hgb Conc. 33.8 g/dL (32.0-36.0); Mean Corpuscular Volume 82.3 fL (80.0-100.0); Monocytes # (auto) 0.2 10 ^3/uL (0-1.3); Neutrophils % (auto) 61.1 % (37.0-80.0); Nucleated Red Blood Cells % 0.3 %; Platelet Count (auto) 141 10^3/uL (140-450); Red Blood Cells 4.47 10^6/uL (4.0-5.20); Red Cell Distribution Width 14.1 % (11.8-14.3); White Blood Cell 3.3 10^3/uL (4.4-10.8)
[2024-09-13 08:00] VITALS: PULSE 71
[2024-09-13 09:00] VITALS: BP 118/68; PULSE 72; RESP 18; TEMP 98; O2SAT 98
[2024-09-13 13:00] VITALS: BP 114/67; PULSE 83; RESP 17; TEMP 97.8; O2SAT 94
--- NOTE | 2024-09-13 16:26 | DVHDSRES ---
Discharge Summary Date of Admission Resident Creating Document: VALENTINA COREY RESDIENT Sep 10, 2024 at 16:15 Date of Discharge: Sep 13, 2024 Admitting Diagnosis Syncope Labs/Diagnostic Data: Laboratory Results Test 09/13/24 06:06 09/12/24 05:26 09/11/24 16:53 09/11/24 08:01 White Blood Count 3.3 10^3/uL (4.4-10.8) Red Blood Count 4.47 10^6/uL (4.0-5.20) Hemoglobin 12.4 g/dL (12.2-16.2) Hematocrit 36.8 % (36.0-46.0) Mean Corpuscular Volume 82.3 fL (80.0-100.0) Mean Corpuscular Hemoglobin 27.8 pg (28.0-32.0) Mean Corpuscular Hemoglobin Concent 33.8 g/dL (32.0-36.0) Red Cell Distribution Width 14.1 % (11.8-14.3) Platelet Count 141 10^3/uL (140-450) Mean Platelet Volume 9.6 fL (6.9-10.8) Neutrophils (%) (Auto) 61.1 % (37.0-80.0) Lymphocytes (%) (Auto) 31.1 % (10.0-50.0) Monocytes (%) (Auto) 6.0 % (0.0-12.0) Eosinophils (%) (Auto) 1.3 % (0.0-7.0) Basophils (%) (Auto) 0.5 % (0.0-2.0) Neutrophils # (Auto) 2.0 10 ^3/uL (1.6-8.6) Lymphocytes # (Auto) 1.0 10 ^3/uL (0.4-5.4) Monocytes # (Auto) 0.2 10 ^3/uL (0-1.3) Eosinophils # (Auto) 0 10 ^3/uL (0-0.8) Basophils # (Auto) 0 10 ^3/uL (0-0.2) Nucleated Red Blood Cells 0.3 % Sodium Level 141 mmol/L (136-145) Potassium Level 3.5 mmol/L (3.5-5.1) Chloride Level 110 mmol/L (98-107) Carbon Dioxide Level 23 mmol/L (20-31) Anion Gap 8 (5-15) Blood Urea Nitrogen 5 mg/dL (9-23) Creatinine 0.63 mg/dL (0.550-1.02) Glomerular Filtration Rate Calc 120 mL/min (>90) BUN/Creatinine Ratio 7.9 (10.0-20.0) Serum Glucose 95 mg/dL (74-106) Calcium Level 9.0 mg/dL (8.7-10.4) Urine Color Colorless (Yellow) Urine Clarity Turbid (Clear) Urine pH 7.5 (5.0-9.0) Urine Specific [place] 1.045 (1.001-1.035) Urine Protein 1+ (Negative) Urine Ketones Negative (Negative) Urine Blood 3+ /uL (Negative) Urine Nitrite Negative (Negative) Urine Bilirubin Negative (Negative) Urine Urobilinogen Normal mg/dL (Negative) Urine Leukocyte Esterase Trace /uL (Negative) Urine RBC 4217 /hpf (0 - 4) Urine WBC 19 /hpf (0 - 5) Urine Squamous Epithelial Cells Few /hpf (<5) Urine Bacteria None seen /hpf (None Seen) Urine Glucose Normal mg/dL (Normal) Urine Opiates Screen Neg (NEGATIVE) Urine Fentanyl Screen Neg (NEGATIVE) Urine Barbiturates Screen Neg (NEGATIVE) Urine Phencyclidine Screen Neg (NEGATIVE) Urine Amphetamines Screen Neg (NEGATIVE) Urine Benzodiazepines Screen Neg (NEGATIVE) Urine Cocaine Screen Neg (NEGATIVE) Urine Cannabinoids Screen Neg (NEGATIVE) Lactic Acid Level 1.2 mmol/L (0.4-2.0) Ammonia 25 umol/L (11-32) Test 09/11/24 05:41 09/10/24 16:28 Prothrombin Time 10.3 sec (9.3-11.8) Prothrombin Time INR 0.97 (0.9-1.15) Activated Partial Thromboplast Time 25.7 SEC (24.5-34.5) Hemoglobin A1c 5.5 % A1C (<5.7) Phosphorus Level 3.1 mg/dL (2.4-5.1) Magnesium Level 2.0 mg/dL (1.6-2.6) Total Bilirubin 0.4 mg/dL (0.2-1.0) Direct Bilirubin 0.1 mg/dL (<0.3) Aspartate Amino Transferase (AST) 18 U/L (13-40) Alanine Aminotransferase (ALT) 29 U/L (7-40) Alkaline Phosphatase 79 U/L (46-116) Troponin I High Sensitivity < 3 ng/L (</=34) B-Type Natriuretic Peptide 25.52 pg/mL (0-100) Total Protein 6.3 g/dL (5.7-8.2) Albumin 3.7 g/dL (3.2-4.8) Triglycerides Level 76 mg/dL (< 150) Cholesterol Level 161 mg/dL (< 200) LDL Cholesterol 106 mg/dL (< 100) HDL Cholesterol 48 mg/dL (40-59) Vitamin B12 Level 320 pg/mL (211-911) Vitamin D 25-Hydroxy 14.5 ng/mL (30.0-100) Thyroid Stimulating Hormone (TSH) 1.80 uIU/mL (0.55-4.78) Beta HCG, Quantitative 0.3 mIU/mL (1.5-4.2) Plasma/Serum Blood Alcohol 3.7 mg/dL (<10) Other Laboratory Tests 09/13/24 06:06 09/12/24 05:26 Brief Hx & Hospital Course: This is a 33-year-old female with a past medical history of depression, brought to the hospital after a loss of consciousness. Per EMS, the patient was found by bystanders on the ground near a street crossing after an unwitnessed syncopal episode. The patient does not remember the events aside from dropping off her kids and walking back towards the car. She had a previous syncopal episode in April 2024, at which time cardiac and neurology workups, including head CT scan, brain MRI, CT angiogram, transvaginal ultrasound, and abdominopelvic CT scan, were normal. Patient was also mentioned decreased sleep and oral intake since 1-2 months and right flank and right knee pain. She denies chest pain, headache, dizziness, diaphoresis, shortness of breath, abdominal pain, nausea, vomiting, fever, or chills. PMHx: History of depression (diagnosed during teenage years, stopped taking medication 15 years ago), hyperlipidemia PSHx: Right salpingectomy due to ruptured ectopic in 2018 Family History: Reports cancer in mother (type unknown) Social History: Lives with family, denies smoking, drink occasional, or any other drug use Home Medication: None Allergic History: Acetaminophen and hydrocodone On physical examination during admission there was Bruises on the right flank, an abrasion on lateral surface of right knee with blunted affect, otherwise within normal limits. Lab studies were significant for WBC at 3.7, chloride 108, serum alcohol level was 3.7, and urinalysis was showing microscopic hematuria. Patient was admitted for evaluation of syncope. During hospital admission the patient was put on telemetry, 1 L of normal saline given. Cardiology evaluated and recommended that the syncope was probably due to orthostatic syncope. Due to heavy vaginal bleeding, gynecology was consulted, recommended outpatient follow up. Due to abrasion of right knee, wound consultation was done, perform daily dressing. Echocardiogram, head CT, carotid Doppler study, chest x-ray, pelvic ultrasound, neck CTA were within normal limits. Due to history of depression, psychiatric evaluation was performed, patient denied to be evaluated by psychiatrist. Due to pain of right knee and hip, x-ray was performed which was normal. During hospital admission patient WBC, Hb and platelets were dropped, which became normalized. On 09/13/2024, patient was feeling better, vomiting pain improved, patient did not have any dizziness, telemetry was showing new event during hospital stay, discharge plan discussed with the patient. Discharge plan: Follow up with the PCP within 1 week after discharge. Follow up with the gynecology on outpatient basis. Follow up with the Cardiology for event monitoring on outpatient basis. Consults/Reason for consult Gynecology: Heavy vaginal bleeding Cardiology: Syncope Psychiatric: Patient refused to be evaluated Operations or Procedures [place] [address] Ph: [phone] DIAGNOSTIC IMAGING Diagnostic Imaging Report : [id number] Signed PATIENT: BENITEZ FLOWERSCT: [id number] UNIT: [id number] : 1990 LOC: [facility] ROOM / BED: 0240T / B AGE / SEX: 33 / F ADM STATUS: ADM IN SERVICE 0658 ORDERING PHYSICIAN: LESTER RIVERS RESIDENT PROCEDURE(s): ECIDC - ECHO 2D MODE CARDIAC DOP REASON: Syncope ORDER NUMBER(s): [id number], ACCESSION NUMBER(s): [id number] APPROVED REPORT EXAM: Two-dimensional and M-mode echocardiogram with Doppler and color Doppler. Blood Pressure: 100/56 mmHg INDICATION Syncope RISK FACTORS Height: 5'5", Weight: 180 DIMENSIONS LVDd 4.8 (3.8-5.7cm) LA (2D) 4.1 (1.9-4.0cm) Aortic Root 3.1 (2.0- 3.7cm) LVDs 3.0 (2.5-4.0cm) LA (MM) (1.9-4.0cm) Aortic Cusp Exc 2.0 (1.5- 2.0cm) EF (%) 68.0 (55-70%) Rt. Atrium 3.3 (1.9-4.0cm) Asc. Aorta 3.1 cm IVSd 0.8 (0.7-1.1cm) RV (D) (1.8-2.4cm) PWd 0.6 (0.7-1.1cm) Mitral Valve Mitral Mitral Stenosis E wave 0.77m/s MV Mean GR. mmHg A wave 0.60m/s MV Peak GR. mmHg E/A ratio 1.3 2D MVA cm2 DECEL Time 156ms PRESS 1/2 Time ms Aortic Valve Aortic Valve Aortic Stenosis V1 1.38m/s AO Mean GR. 4mmHg V2 1.43m/s AO Peak GR. 8mmHg LVOT Diameter 2.1 (1.8-2.4cm) Doppler LANDRY 3.34cm2 Pulmonic Valve V2 0.81m/s Conclusion Normal left ventricular size and dimension. Normal left ventricular systolic function estimated ejection fraction 55%. Normal diastolic function. Normal right ventricular size and dimension. Normal right ventricular systolic function. Normal biatrial size and dimension. Normal aortic valve structure and function. Normal mitral valve structure and function. Normal tricuspid valve structure and function. The pulmonary valve is grossly normal. No pericardial effusion. SIGNED BY: RUDDY TURNER MD SIGNED DATE/TIME: 09/11/24 1528 CC: [address] [address] Ph: [phone] DIAGNOSTIC IMAGING Diagnostic Imaging Report : [id number] Signed PATIENT: BENITEZ FLOWERSCT: [id number] UNIT: [id number] : 1990 LOC: [facility] ROOM / BED: 0240T / B AGE / SEX: 33 / F ADM STATUS: ADM IN SERVICE 0658 ORDERING PHYSICIAN: LESTER RIVERS RESIDENT PROCEDURE(s): CARCL - CAROTID DUPLX W COLOR DOP REASON: Syncope ORDER NUMBER(s): [id number], ACCESSION NUMBER(s): [id number] Carotid Duplex Date: 09/11/2024 08:56 AM Clinical History: Syncope Comparison: None Technique: Duplex Doppler evaluation of the extracranial carotid and vertebral arteries including color Doppler and spectral/pulsed waveform analysis was performed. Findings: RIGHT SIDE: The peak systolic velocities are 65 cm/s in the distal CCA and 94 cm/s in the proximal ICA.The ICA/CCA ratio is less than 2. The external carotid artery is patent with peak systolic velocity of 81 cm/s proximally. There is appropriate antegrade flow in the right vertebral artery. LEFT SIDE: The peak systolic velocities are 105 cm/s in the distal CCA and 101 cm/s in the proximal ICA.. The ICA/CCA ratio is normal. The external carotid artery is patent with peak systolic velocity of 65 cm/s proximally. There is appropriate antegrade flow in the left vertebral artery. IMPRESSION: 1. No hemodynamically significant stenosis noted in the right carotid system. 2. No hemodynamically significant stenosis noted in the left carotid system. 3. Reference: Radiology 2003; [id number] HS:Y ATED BY: SUZY CABRERA DO DICTATED DATE/TIME: 09/11/24 135 SIGNED BY: SUZY CABRERA DO SIGNED DATE/TIME: 09/11/24 135 CC: Condition at Discharge: Good Final Diagnosis/Problems List Loss of consciousness likely due to cardiac syncope/orthostatic hypotension/vasovagal History of depression Anxiety History of Right salpingectomy due to ruptured ectopic in 2018 Menorrhagia and irregular periods since salpingectomy Right knee pain Right hip pain Obesity Hyperchloremia Microscopic hematuria Dyslipidemia Vitamin-D deficiency //ectopics excluded Pancytopenia, improved Ruled out dietitian, close head injury Hypotension Discharge Disposition: Home Discharge Statement: "Patient was advised to return to the ER or call 911 if any headaches, dizziness, shortness of breath, chest pain, abdominal pain, bleeding, fevers, or worsening of medical condition. Patient was counseled about treatment plan, medications, possible side effects, patientverbalized understanding. All questions were answered to the best of my ability. This discharge took greater then 30 minutes in planning, reviewing documentation, counseling the patient, and discussing with other team members." ASSESSMENT ASSESSMENT Assessment Date of Service: Sep 13, 2024 Billing Provider: JOSUÉ DOMINGUEZ MD Common Visit Codes: [id number]/[id number] DISCH DAY >30min VALENTINA COREY RESDIENT Sep 13, 2024 16:26 JOSUÉ DOMINGUEZ MD Sep 14, 2024 19:52
[2024-09-13 17:00] VITALS: BP 124/74; PULSE 98; RESP 17; TEMP 98.5; O2SAT 98
== END 2024-09-13 18:15 | disposition home or self-care (01) | DRG 204 ==
LOC: EDBD 09:35 → EDUNIT# 09:35 → ER 09:35 → TELE 16:15 → ER 16:20 → TELE-EAST 21:40 → TELE-E-ADS 09-13 13:25
PROVIDERS: ADMIT Student in an Organized Health Care Education/Training Program; ATTEND Student in an Organized Health Care Education/Training Program
DX: I95.1 Orthostatic hypotension (principal); E87.8 Other disorders of electrolyte and fluid balance, not elsewhere classified; E55.9 Vitamin D deficiency, unspecified; E66.9 Obesity, unspecified; E78.5 Hyperlipidemia, unspecified; F41.9 Anxiety disorder, unspecified; F32.A Depression, unspecified; N92.0 Excessive and frequent menstruation with regular cycle; R31.29 Other microscopic hematuria; Z88.5 Allergy status to narcotic agent; Z88.6 Allergy status to analgesic agent; Z80.41 Family history of malignant neoplasm of ovary; Z83.3 Family history of diabetes mellitus; Z68.30 Body mass index [BMI] 30.0-30.9, adult
CPT/HCPCS: 36415; 70450; 70498; 71045; 73501; 73560; 76830; 76856; 80048; 80061; 80076; 80307; 80320; 81001; 82140; 82306; 82607; 83036; 83605; 83735; 83880; 84100; 84443; 84484; 84702; 85025; 85610; 85730; 93306; 93886; 96360; 96361; 99291; G0378; J1885; J2405

== ENCOUNTER 2025-06-30 22:07 | Inpatient (IN) | payer MEDICAID ==
[~2025-06-30] VITALS: Ht 162.6 cm; Wt 100.0 kg
[2025-06-30 22:59] LABS: Hematocrit 38.1 % (36.0-46.0); Hemoglobin 12.9 g/dL (12.2-16.2); Mean Corpuscular Hemoglobin 27.8 pg (28.0-32.0); Mean Corpuscular Volume 81.9 fL (80.0-100.0); Nucleated Red Blood Cells % 0.0 %
--- NOTE | 2025-06-30 22:59 | DVH ---
CHEST RADIOGRAPH Indication: abdominal pain Technique: Single frontal view of the chest was obtained Comparison: XY CHEST XRAY 1 VIEW on DOS: 09/11/24 FINDINGS: Lines and Tubes: None Lungs: No focal consolidation. Pleura: No effusion. No pneumothorax. Cardiomediastinal contours: Unremarkable Bones: No acute osseous abnormality. IMPRESSION: 1. No acute cardiopulmonary disease. 2. No significant change from 09/11 1024.
--- NOTE | 2025-06-30 23:13 | ED.PDOC ---
History of Present Illness HPI Comments 34 y/o obese F is BIBA for c/c nonradiating, generalized abdominal pain, nausea, vomiting, and diarrhea. Patient endorses on sudden, unprovoked onset of 10/10, sharp pain, this evening. She vomited a total of 2x. Vitals were noted to have been stable and within normal limits, with a blood glucose of 110. En route, patient was given 4mg Zofran. Significant history ectopic and menorrhagia. Denial of any bloody or bilious vomitus, constipation, fever, chills, or further associated symptoms. Chief Complaint: Abdominal Pain Time Seen by MD: 22:10 Primary Care Provider: EDWIN Reviewed Notes: Nurses Notes, Medications, Allergies Allergies: Coded Allergies: Acetaminophen (Verified Allergy, Unknown, 05/16/21) Hydrocodone (Verified Allergy, Unknown, 05/16/21) No Known Drug Allergy (Unverified Allergy, Unknown, 01/02/23) Home Meds No Active Prescriptions or Reported Meds Information Source: Patient Mode of Arrival: EMS Severity: Moderate Timing: Hours Duration: Since onset Prehospital treatment: None Past Medical History PAST MEDICAL HISTORY: High Lipids, Hypotension Past Medical History (Other): Pancytopenia Surgical History (Other): History of Right salpingectomy due to ruptured ectopic in 2018 Menorrhagia and irregular periods since salpingectomy 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 Hx Family History Family History: Unknown Social History Smoker: Non-Smoker Alcohol: Denies ETOH Use Drugs: Denies Drug Use Lives In: Home All Other Systems: Reviewed and Negative (Comprehensive systems review obtained and negative except for what is stated in the HPI.) Physical Exam General Appearance: No Apparent Distress, Obese HEENT: Normal ENT Inspection, Pharynx Normal, TMs Normal Neck: Full Range of Motion, Non-Tender, Normal, Normal Inspection Respiratory: Chest Non-Tender, Lungs Clear, No Accessory Muscle Use, No Respiratory Distress, Normal Breath Sounds Cardiovascular: No Edema, No JVD, No Murmur, No Gallop, Normal Peripheral Pulses, Regular Rate/Rhythm Breast Exam: Deferred Gastrointestinal: Diffuse (tenderness ), No Organomegaly, No Pulsatile Mass, Normal Bowel Sounds, Soft, Tenderness Genitalia: Deferred Pelvic: Deferred Rectal: Deferred Extremities: No calf tenderness, Normal capillary refill, Normal inspection, Normal range of motion, Non-tender, No pedal edema Musculoskeletal : Apperance: Normal 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 Was a procedure done?: No Differential Dx Considerations may include: gastritis, gastroenteritis, GERD, PUD, electrolyte imbalance, dehydration, among others X-Ray, Labs, Meds, VS Vital Signs Date Time Temp Pulse Resp B/P (MAP) Pulse Ox O2 Delivery O2 Flow Rate FiO2 07/01/25 04:57 88 16 124/76 07/01/25 00:51 Room Air* 0 21 07/01/25 00:50 97.8 83 119/68 (85) 97 97.8 07/01/25 00:48 83 16 119/68 06/30/25 22:16 98.5 99 20 119/82 96 98.5 Lab Test 07/01/25 01:00 06/30/25 22:38 Range/Units Urine Color Light-yellow Yellow Urine Clarity Clear Clear Urine pH 6.5 5.0-9.0 Urine Specific [place] 1.012 1.001-1.035 Urine Protein Negative Negative Urine Ketones Negative Negative Urine Blood Negative Negative /uL Urine Nitrite Negative Negative Urine Bilirubin Negative Negative Urine Urobilinogen Normal Negative mg/dL Urine Leukocyte Esterase Negative Negative /uL Urine RBC None seen 0 - 4 /hpf Urine Microscopic WBC < 1 0-5 /HPF Urine Squamous Epithelial Cells Few <5 /hpf Urine Bacteria Few H None Seen /hpf Urine Mucus Few None Seen Urine Glucose Normal Normal mg/dL Urine Test Negative Negative White Blood Count 3.3 L 4.4-10.8 10^3/uL Red Blood Count 4.64 4.0-5.20 10^6/uL Hemoglobin 12.9 12.2-16.2 g/dL Hematocrit 38.1 36.0-46.0 % Mean Corpuscular Volume 81.9 80.0-100.0 fL Mean Corpuscular Hemoglobin 27.8 L 28.0-32.0 pg Mean Corpuscular Hemoglobin Concent 34.0 32.0-36.0 g/dL Red Cell Distribution Width 14.0 11.8-14.3 % Platelet Count 152 140-450 10^3/uL Mean Platelet Volume 9.6 6.9-10.8 fL Neutrophils (%) (Auto) 64.5 37.0-80.0 % Lymphocytes (%) (Auto) 26.3 10.0-50.0 % Monocytes (%) (Auto) 7.8 0.0-12.0 % Eosinophils (%) (Auto) 0.9 0.0-7.0 % Basophils (%) (Auto) 0.5 0.0-2.0 % Neutrophils # (Auto) 2.2 1.6-8.6 10 ^3/uL Lymphocytes # (Auto) 0.9 0.4-5.4 10 ^3/uL Monocytes # (Auto) 0.3 0-1.3 10 ^3/uL Eosinophils # (Auto) 0 0-0.8 10 ^3/uL Basophils # (Auto) 0 0-0.2 10 ^3/uL Nucleated Red Blood Cells 0.0 % Sodium Level 141 136-145 mmol/L Potassium Level 3.6 3.5-5.1 mmol/L Chloride Level 108 H 98-107 mmol/L Carbon Dioxide Level 23 20-31 mmol/L Anion Gap 10 5-15 Blood Urea Nitrogen < 5 L 9-23 mg/dL Creatinine 0.71 0.550-1.02 mg/dL Glomerular Filtration Rate Calc 114 >90 mL/min BUN/Creatinine Ratio 7.0 L 10.0-20.0 Serum Glucose 95 74-106 mg/dL Calcium Level 9.4 8.7-10.4 mg/dL Total Bilirubin 0.4 0.2-1.0 mg/dL Aspartate Amino Transferase (AST) 72 H 13-40 U/L Alanine Aminotransferase (ALT) 90 H 7-40 U/L Alkaline Phosphatase 99 46-116 U/L Total Protein 7.6 5.7-8.2 g/dL Albumin 4.6 3.2-4.8 g/dL Lipase 50 12-53 U/L Current Medications Medications (Trade) Dose Ordered Sig/Kamille Route Start Time Stop Time Status Last Admin Sodium Chloride 1,000 ml @ 1,000 mls/hr Q1H ONCE IV 06/30/25 22:15 06/30/25 23:14 DC 07/01/25 00:49 Morphine Sulfate 4 mg ONCE ONCE IV 06/30/25 22:15 06/30/25 22:16 DC 07/01/25 00:48 Ondansetron HCl (Zofran) 4 mg ONCE ONCE IV 06/30/25 22:15 06/30/25 22:16 DC 07/01/25 00:49 Sodium Chloride 1,000 ml @ 1,000 mls/hr Q1H ONCE IV 07/01/25 00:30 07/01/25 01:29 DC 07/01/25 00:49 Metronidazole 100 ml @ 100 mls/hr ONCE ONCE IV 07/01/25 02:45 07/01/25 03:44 DC 07/01/25 04:58 Morphine Sulfate 4 mg ONCE ONCE IV 07/01/25 02:45 07/01/25 02:49 DC 07/01/25 04:57 Ondansetron HCl (Zofran) 4 mg ONCE ONCE IV 07/01/25 02:45 07/01/25 02:49 DC 07/01/25 04:56 [place] [id number] Ph: [phone] DIAGNOSTIC IMAGING Diagnostic Imaging Report : [id number] Signed PATIENT: WALE FLOWERS ACCT: [id number] UNIT: [id number] : 1990 LOC: ER ROOM / BED: / AGE / SEX: 34 / F ADM STATUS: REG ER SERVICE 12 ORDERING PHYSICIAN: CELIA TIWARI MD PROCEDURE(s): CXRP - CHEST PORTABLE REASON: abdominal pain ORDER NUMBER(s): [id number], ACCESSION NUMBER(s): [id number] CHEST RADIOGRAPH Indication: abdominal pain Technique: Single frontal view of the chest was obtained Comparison: XY CHEST XRAY 1 VIEW on DOS: 09/11/24 FINDINGS: Lines and Tubes: None Lungs: No focal consolidation. Pleura: No effusion. No pneumothorax. Cardiomediastinal contours: Unremarkable Bones: No acute osseous abnormality. IMPRESSION: 1. No acute cardiopulmonary disease. 2. No significant change from 09/11 1024. ATED BY: KATHY FINN Jr., DO DICTATED DATE/TIME: 06/30/25 7833 SIGNED BY: KATHY FINN Jr., SIGNED DATE/TIME: 06/30/252255 CC: Time of 1ST Reevaluation: 22:40 Reevaluation 1ST: Unchanged Patient Education/Counseling: Diagnosis, Treatment, Need For Follow Up Family Education/Counseling: No Family Present SEPSIS Sepsis Screen Date sepsis recognized/suspect: Jun 30, 2025 Time Sepsis recognized/suspect: 2218 Recent Procedure: No On Antibiotic Therapy: No Respiratory Rate >20: No Heart Rate >90: Yes Temp<36 C (96.8 F) or >38.3 C: No SBP <90 or MAP <65 mmHG: No New Acute Mental Status Change: No Is the patient on CPAP, BIPAP,: No Physician Orders Chest Portable (06/30/25 22:13) Ct Ab Pel With Iv Con Only (07/01/25 00:23) Vital Signs Date Time Temp Pulse Resp B/P (MAP) Pulse Ox O2 Delivery O2 Flow Rate FiO2 07/01/25 04:57 88 16 124/76 07/01/25 00:51 Room Air* 0 21 07/01/25 00:50 97.8 83 119/68 (85) 97 97.8 07/01/25 00:48 83 16 119/68 06/30/25 22:16 98.5 99 20 119/82 96 98.5 Laboratory Tests Test 06/30/25 22:38 White Blood Count 3.3 10^3/uL (4.4-10.8) L Medications Medications Dose Ordered Sig/Kamille Route Start Time Stop Time Status Last Admin Dose Admin Metronidazole 100 ml @ 100 mls/hr ONCE ONCE IV 07/01/25 02:45 07/01/25 03:44 DC 07/01/25 04:58 Morphine Sulfate 4 mg ONCE ONCE IV 06/30/25 22:15 06/30/25 22:16 DC 07/01/25 00:48 Morphine Sulfate 4 mg ONCE ONCE IV 07/01/25 02:45 07/01/25 02:49 DC 07/01/25 04:57 Ondansetron HCl 4 mg ONCE ONCE IV 06/30/25 22:15 06/30/25 22:16 DC 07/01/25 00:49 Ondansetron HCl 4 mg ONCE ONCE IV 07/01/25 02:45 07/01/25 02:49 DC 07/01/25 04:56 Sodium Chloride 1,000 ml @ 1,000 mls/hr Q1H ONCE IV 06/30/25 22:15 06/30/25 23:14 DC 07/01/25 00:49 Sodium Chloride 1,000 ml @ 1,000 mls/hr Q1H ONCE IV 07/01/25 00:30 07/01/25 01:29 DC 07/01/25 00:49 Departure 1 Departure Time of Disposition: 06:14 (Patient presented with abdominal pain that was concerning for possible appendicits, gastritis, cholecystitis, colitis, gastroenteritis, sbo, or orther possible surgical emergency. Data: 1. I ordered and reviewed the result of at least 3 labs including a CBC, BMP, and Urinalysis. 2. I independently interpreted the following tests: CT Abdoment and Pelvis is concerning for ovarian cysts .Risk:This patient has a high risk of morbidity due to further diagnostic testing or treatment and may suffer from an acute abdominal process disorder. Workup reveals likely ovarian cysts and intractable pain and patient should be admitted for further workup. and possible expert consultation. ) Impression: Primary Impression: Intractable abdominal pain Additional Impression: Ovarian cyst Qualified Codes: N83.202 - Unspecified ovarian cyst, left side Disposition: ADMITTED INPATIENT Admit to: Med Surg Condition: Serious e-Prescriptions No Active Prescriptions or Reported Meds Critical Care Note Critical Care Time?: Yes Critical care comment: Intractable abdominal pain Authorized and Performed by: Celia Tiwari MD Total critical care time: Approximately 36 minutes Due to a high probability of clinically significant, life threatening deterioration, the patient required my highest level of preparedness to int ervene emergently and I personally spent this critical care time directly and personally managing the patient. This critical care time included obtaining a history; examining the patient; pulse oximetry; ordering and review of studies; arranging urgent treatment with development of a management plan; evaluation of patient's response to treatment; frequent reassessment; and, discussions with other providers. This critical care time was performed to assess and manage the high probability of imminent, life-threatening deterioration that could result in multi-organ failure. It was exclusive of separately billable procedures and treating other patients and teaching time. Please see my other sections and the rest of the note for further information on patient assessment and treatment. Stability Stability form required: No Heart Score Heart Score: Heart Score Response (Comments) Value History N/A 0 EKG N/A 0 Age N/A 0 Risk Factors N/A 0 Troponin N/A 0 Total 0 I personally scribed for CELIA TIWARI MD ([email or web address]) on 06/30/25 at 23:13. El ectronically submitted by Tahir Wing ([email or web address]). I personally scribed for CELIA TIWARI MD ([email or web address]) on 06/30/25 at 23:20. Electronically submitted by Tahir Wing ([email or web address]). I personally scribed for CELIA TIWARI MD ([email or web address]) on 06/30/25 at 23:41. Electronically submitted by Tahir Wing ([email or web address]). I personally scribed for CELIA TIWARI MD ([email or web address]) on 07/01/25 at 01:16. Electronically submitted by Tahir Wing ([email or web address]). CELIA TIWARI MD Jun 30, 2025 23:13
[2025-06-30 23:31] LABS: Alanine Aminotransferase 90 U/L (7-40); Albumin 4.6 g/dL (3.2-4.8); Alkaline Phosphatase 99 U/L (46-116); Anion Gap 10 (5-15); BUN/Creatinine Ratio 7.0 (10.0-20.0); Blood Urea Nitrogen < 5 mg/dL (9-23); Calcium 9.4 mg/dL (8.7-10.4); Carbon Dioxide 23 mmol/L (20-31); Chloride 108 mmol/L (98-107); Glucose 95 mg/dL (74-106); Lipase 50 U/L (12-53); Potassium 3.6 mmol/L (3.5-5.1); Sodium 141 mmol/L (136-145); Total Protein 7.6 g/dL (5.7-8.2)
[2025-06-30 23:32] LABS: Bilirubin, Total 0.4 mg/dL (0.2-1.0)
[2025-07-01] MEDS: MORPHINE SULFATE 4 MG/ML SYR/VIAL IV ONE ×2 (00:48→04:57)
[2025-07-01] MEDS: ONDANSETRON HCL 4 MG/2 ML VIAL IV ONE ×2 (00:49→04:56)
[2025-07-01] MEDS: SODIUM CHLORIDE 0.9% 1,000 ML IV ONE ×3 (00:49→17:34)
[2025-07-01] MEDS: IOHEXOL 300 MG/ML 100ML BOTTLE IJ ONE ×2 (01:00→02:31)
[2025-07-01 02:05] LABS: Urine Protein, UAD Negative (Negative)
--- NOTE | 2025-07-01 02:39 | DVH ---
Exam: CT CT AB PEL WITH IV CON ONLY History: abdominal pain COMPARISON: US PELVIC on DOS: 09/11/24, CT AB PEL WITH IV CON ONLY on DOS: 05/31/21 Technique: Multidetector spiral CT of the abdomen and pelvis was performed from lung bases to pubic s ymphysis. Intravenous contrast was administered during this examination. Portal venous imaging was o btained. Axial, coronal and sagittal multiplanar reformats were performed by the technologist on a [employer] workstation. Radiation Dose : 1. Abdomen/Pelvis: CTDIvol 24.61mGy, DLP 1353.08 mGy*cm. CONTRAST: Type of contrast: Omnipaque 300 Contrast injected: 99 ml Findings: Lung Bases: No acute or significant lung base finding. Normal heart size. No pleural or pericardial effusion. Liver: The liver is normal in size. Hepatic steatosis. No focal lesions. Normal hepatic vascular enha ncement. Gallbladder and Biliary Tree: Unremarkable Spleen: Unremarkable Pancreas: The pancreas is normal in appearance without focal lesions or abnormal enhancement. Adrenal Glands: Unremarkable Kidneys: No hydronephrosis. Bladder: Unremarkable Bowel: The stomach is grossly normal in appearance. Retained colorectal stool. Small bowel and colon are otherwise normal in caliber and distribution. The appendix is normal. Ascites: Absent Lymphadenopathy: No mesenteric, retroperitoneal or periportal lymphadenopathy. Abdominal Wall and Mesentery: Small fat containing umbilical hernia. Vasculature: The visualized abdominal aorta is normal in size and caliber. Abdominal and pelvic vess els demonstrate normal enhancement. Pelvic Organs: Slightly tubular appearing near water attenuation structure within the left adnexal re gion. Surgical clips within the right adnexal region. Likely physiologic endometrial fluid. Musculoskeletal: No aggressive focal bony lesions, acute fractures or dislocation. IMPRESSION: 1. Hepatic steatosis. 2. Retained colorectal stool. 3. Slightly tubular appearing near water attenuation left adnexal structure. Considerations include hydrosalpinx and ovarian cyst versus less likely tubo-ovarian abscess. Radiation optimization: All CT scans at this facility use at least one of these dose optimization darin hniques: automated exposure control mA and/or kV adjustment per patient size (includes targeted exam s where dose is matched to clinical indication) or iterative reconstruction.
[2025-07-01] MEDS: ceFAZolin 2 GM/D5W50ml 50 ML IV ONE (06:57)
[2025-07-01] MEDS ORDERED: DOCUSATE SOD 100 MG CAP PO PRN (11:30)
--- NOTE | 2025-07-01 11:45 | DVHHP2 ---
History of Present Illness Reason for Visit: Abdominal pain History of Present Illness Maria Esther Hernández is a 34-year-old female with past medical history of obesity, hyperlipidemia, and pancytopenia who came to the hospital for abdomial pain. Patient states her abdominal pain is in her epigastric region, sharp, stabbing pain, that came on suddenly yesterday morning. She has associated nausea, vomiting, and diarrhea. Has not been able to keep any food down since her symptoms began. Past Surgical History: Other (Salpingectomy) Smoke: No ALCOHOL: none Drugs: None Lives: with Family Domestic Violence: Neg Review of Systems Constitutional: No: Fever, Chills, Sweats, Weakness, Malaise, Other Eyes: No: Pain, Vision change, Conjunctivae inflammation, Eyelid inflammation, Other, Redness ENT: No: Ear pain, Ear discharge, Nose pain, Nose discharge, Nose congestion, Mouth pain, Mouth swelling, Throat pain, Throat swelling, Other Respiratory: No: Cough, Dry, Shortness of breath, SOB with excertion, Wheezing, Hemoptysis, Pleuritic Pain, Sputum, Wheezing, Other Cardiovascular: No: Chest Pain, Palpitations, Orthopnea, Paroxysmal Noc. Dyspnea, Edema, Lt Headedness, Other Gastrointestinal: Nausea, Vomiting, Abdominal Pain, Diarrhea; No: Constipation, Melena, Hematochezia, Other Genitourinary: No Dysuria, No Frequency, No Incontinence, No Hematuria, No Retention, No Other Musculoskeletal: No: other, neck pain, shoulder pain, arm pain, back pain, hand pain, leg pain, foot pain Skin: No: Rash, Lesions, Jaundice, Bruising, Other Neurological: No: Weakness, Numbness, Incoordination, Change in speech, Confusion, Seizures, Other Allergies: Coded Allergies: No Known Drug Allergy (Unverified Allergy, Unknown, 01/02/23) Exam Vital Signs Vital Signs Date Time Temp Pulse Resp B/P (MAP) Pulse Ox O2 Delivery O2 Flow Rate FiO2 07/01/25 04:57 88 16 124/76 07/01/25 00:51 Room Air* 0 21 07/01/25 00:50 97.8 97 97.8 General Appearance: Alert, Oriented X3, Cooperative, moderate distress HEENT: Atraumatic, PERRLA Respiratory: Clear to auscultation, Normal air movement Cardiovascular: Regular rate, Normal S1, Normal S2, No murmurs Abdominal: Normal bowel sounds, Soft, No hepatospenomegaly, Other (epigastric pain) Extremities: No clubbing, No cyanosis, No edema, Normal pulses, No tenderness/swelling Skin: No rashes, No breakdown, No significant lesion Neuro: Normal gait, Normal speech, Strength at 5/5 X4 ext, Normal tone Psych/Mental Status: Mental status NL, Mood NL Labs/Xrays Labs Test 07/01/25 01:00 06/30/25 22:38 Range/Units Urine Color Light-yellow Yellow Urine Clarity Clear Clear Urine pH 6.5 5.0-9.0 Urine Specific [place] 1.012 1.001-1.035 Urine Protein Negative Negative Urine Ketones Negative Negative Urine Blood Negative Negative /uL Urine Nitrite Negative Negative Urine Bilirubin Negative Negative Urine Urobilinogen Normal Negative mg/dL Urine Leukocyte Esterase Negative Negative /uL Urine RBC None seen 0 - 4 /hpf Urine Microscopic WBC < 1 0-5 /HPF Urine Squamous Epithelial Cells Few <5 /hpf Urine Bacteria Few H None Seen /hpf Urine Mucus Few None Seen Urine Glucose Normal Normal mg/dL Urine Test Negative Negative White Blood Count 3.3 L 4.4-10.8 10^3/uL Red Blood Count 4.64 4.0-5.20 10^6/uL Hemoglobin 12.9 12.2-16.2 g/dL Hematocrit 38.1 36.0-46.0 % Mean Corpuscular Volume 81.9 80.0-100.0 fL Mean Corpuscular Hemoglobin 27.8 L 28.0-32.0 pg Mean Corpuscular Hemoglobin Concent 34.0 32.0-36.0 g/dL Red Cell Distribution Width 14.0 11.8-14.3 % Platelet Count 152 140-450 10^3/uL Mean Platelet Volume 9.6 6.9-10.8 fL Neutrophils (%) (Auto) 64.5 37.0-80.0 % Lymphocytes (%) (Auto) 26.3 10.0-50.0 % Monocytes (%) (Auto) 7.8 0.0-12.0 % Eosinophils (%) (Auto) 0.9 0.0-7.0 % Basophils (%) (Auto) 0.5 0.0-2.0 % Neutrophils # (Auto) 2.2 1.6-8.6 10 ^3/uL Lymphocytes # (Auto) 0.9 0.4-5.4 10 ^3/uL Monocytes # (Auto) 0.3 0-1.3 10 ^3/uL Eosinophils # (Auto) 0 0-0.8 10 ^3/uL Basophils # (Auto) 0 0-0.2 10 ^3/uL Nucleated Red Blood Cells 0.0 % Sodium Level 141 136-145 mmol/L Potassium Level 3.6 3.5-5.1 mmol/L Chloride Level 108 H 98-107 mmol/L Carbon Dioxide Level 23 20-31 mmol/L Anion Gap 10 5-15 Blood Urea Nitrogen < 5 L 9-23 mg/dL Creatinine 0.71 0.550-1.02 mg/dL Glomerular Filtration Rate Calc 114 >90 mL/min BUN/Creatinine Ratio 7.0 L 10.0-20.0 Serum Glucose 95 74-106 mg/dL Calcium Level 9.4 8.7-10.4 mg/dL Total Bilirubin 0.4 0.2-1.0 mg/dL Aspartate Amino Transferase (AST) 72 H 13-40 U/L Alanine Aminotransferase (ALT) 90 H 7-40 U/L Alkaline Phosphatase 99 46-116 U/L Total Protein 7.6 5.7-8.2 g/dL Albumin 4.6 3.2-4.8 g/dL Lipase 50 12-53 U/L CHEST RADIOGRAPH FINDINGS: Lines and Tubes: None Lungs: No focal consolidation. Pleura: No effusion. No pneumothorax. Cardiomediastinal contours: Unremarkable Bones: No acute osseous abnormality. IMPRESSION: 1. No acute cardiopulmonary disease. 2. No significant change from 09/11 1024. Exam: CT CT AB PEL WITH IV CON ONLY CONTRAST: Type of contrast: Omnipaque 300 Contrast injected: 99 ml Findings: Lung Bases: No acute or significant lung base finding. Normal heart size. No pleural or pericardial effusion. Liver: The liver is normal in size. Hepatic steatosis. No focal lesions. Normal hepatic vascular enhancement. Gallbladder and Biliary Tree: Unremarkable Spleen: Unremarkable Pancreas: The pancreas is normal in appearance without focal lesions or abnormal enhancement. Adrenal Glands: Unremarkable Kidneys: No hydronephrosis. Bladder: Unremarkable Bowel: The stomach is grossly normal in appearance. Retained colorectal stool. Small bowel and colon are otherwise normal in caliber and distribution. The appendix is normal. Ascites: Absent Lymphadenopathy: No mesenteric, retroperitoneal or periportal lymphadenopathy. Abdominal Wall and Mesentery: Small fat containing umbilical hernia. Vasculature: The visualized abdominal aorta is normal in size and caliber. Abdominal and pelvic vessels demonstrate normal enhancement. Pelvic Organs: Slightly tubular appearing near water attenuation structure within the left adnexal region. Surgical clips within the right adnexal region. Likely physiologic endometrial fluid. Musculoskeletal: No aggressive focal bony lesions, acute fractures or dislocation. IMPRESSION: 1. Hepatic steatosis. 2. Retained colorectal stool. 3. Slightly tubular appearing near water attenuation left adnexal structure. Considerations include hydrosalpinx and ovarian cyst versus less likely tubo- ovarian abscess. SEPSIS Sepsis Screen Date sepsis recognized/suspect: Jun 30, 2025 Time Sepsis recognized/suspect: 2218 Recent Procedure: No On Antibiotic Therapy: No Respiratory Rate >20: No Heart Rate >90: Yes Temp<36 C (96.8 F) or >38.3 C: No SBP <90 or MAP <65 mmHG: No New Acute Mental Status Change: No Is the patient on CPAP, BIPAP,: No Physician Orders Admit (07/01/25 11:24) Code Status (07/01/25 11:24) Ondansetron Hcl (Zofran) (07/01/25 11:30) Docusate Sodium Capsule (Colace Capsule) (07/01/25 11:30) Complete Blood Count (07/02/25 04:00) Comprehensive Metabolic Panel (07/02/25 04:00) Condition: Serious (07/01/25 11:24) Clear Liq Diet (07/01/25 Lunch) Vital Signs Date Time Temp Pulse Resp B/P (MAP) Pulse Ox O2 Delivery O2 Flow Rate FiO2 07/01/25 04:57 88 16 124/76 Medications Medications Dose Ordered Sig/Kamille Route Start Time Stop Time Status Last Admin Dose Admin Cefazolin Sodium/ Dextrose 50 ml @ 50 mls/hr ONCE ONCE IV 07/01/25 02:45 07/01/25 03:44 DC 07/01/25 06:57 50 MLS/HR Metronidazole 100 ml @ 100 mls/hr ONCE ONCE IV 07/01/25 02:45 07/01/25 03:44 DC 07/01/25 04:58 100 MLS/HR Morphine Sulfate 4 mg ONCE ONCE IV 07/01/25 02:45 07/01/25 02:49 DC 07/01/25 04:57 4 MG Ondansetron HCl 4 mg ONCE ONCE IV 07/01/25 02:45 07/01/25 02:49 DC 07/01/25 04:56 4 MG Sodium Chloride 1,000 ml @ 1,000 mls/hr Q1H ONCE IV 07/01/25 00:30 07/01/25 01:29 DC 07/01/25 00:49 1,000 MLS/HR Assessment/Plan Assessment/Plan Assessment: Intractable abdominal pain, Intractable nausea and vomiting, Leukopenia, Obesity, Plan: Admit to Med-Surg, IV antibiotics, IV fluids, Clear liquid diet, Consider GI consult if symptoms persist, IV antiemetics, Plan discussed with: Patient My Orders Orders - CHANDANA BLANCHARD Procedure Category Date Status Time Admit ADMIT 07/01/25 Verified 11:24 Code Status CODE 07/01/25 Verified 11:24 Ondansetron Hcl PHA 07/01/25 Verified (Zofran) 11:30 Docusate Sodium PHA 07/01/25 Verified Capsule (Colace 11:30 Complete Blood Count LAB 07/02/25 Verified 04:00 Comprehensive LAB 07/02/25 Verified Metabolic Panel 04:00 Condition: Serious JULISA 07/01/25 Verified 11:24 Clear Liq Diet DIET 07/01/25 Verified Lunch Date of Service: Jul 01, 2025 Billing Provider: CHANDANA BLANCHARD Common Visit Codes: [id number] INP/OBS CARE (MOD) CHANDANA BLANCHARD Jul 01, 2025 11:45
[2025-07-01] MEDS ORDERED: ACETAMINOPHEN 325 MG TAB PO PRN (13:15)
[2025-07-01] MEDS: ONDANSETRON HCL 4 MG/2 ML VIAL IV PRN (14:23)
[2025-07-01] MEDS: HYDROcodone-ACET 5/325MG TAB PO PRN (14:24)
[2025-07-01] MEDS: METOCLOPRAMIDE HCL 5MG/ml INJ 2ml VIAL IV SCH (18:00)
[2025-07-02] VITALS (8 sets, daily range): BP systolic 101–119; BP diastolic 59–72; PULSE 66–110; RESP 16–20; TEMP 97.2–97.9; O2SAT 90–100
[2025-07-02 07:02] LABS: Hematocrit 36.2 % (36.0-46.0); Hemoglobin 12.4 g/dL (12.2-16.2); Mean Corpuscular Hemoglobin 27.8 pg (28.0-32.0); Mean Corpuscular Volume 81.2 fL (80.0-100.0); Nucleated Red Blood Cells % 0.1 %
[2025-07-02 07:04] LABS: Albumin 3.8 g/dL (3.2-4.8); Alkaline Phosphatase 75 U/L (46-116); Anion Gap 10 (5-15); Carbon Dioxide 23 mmol/L (20-31); Chloride 106 mmol/L (98-107); Glucose 84 mg/dL (74-106); Potassium 3.7 mmol/L (3.5-5.1); Sodium 139 mmol/L (136-145); Total Protein 6.4 g/dL (5.7-8.2)
[2025-07-02 07:05] LABS: Bilirubin, Total 0.6 mg/dL (0.2-1.0)
[2025-07-02 07:06] LABS: Alanine Aminotransferase 73 U/L (7-40); BUN/Creatinine Ratio 8.2 (10.0-20.0); Blood Urea Nitrogen < 5 mg/dL (9-23); Calcium 8.5 mg/dL (8.7-10.4)
--- NOTE | 2025-07-02 15:31 | DVHPN2 ---
Subjective Patient continues to report having generalized abdominal pain. Reviewed: Care Plan, H&P, Labs, Medications, Previous Orders Changes from previous H/P or p: No Changes General: Per HPI Eyes: No Pain, No Vision change, No Conjunctivae inflammation, No Eyelid inflammation, No Other, No Redness ENT: No Ear pain, No Ear discharge, No Nose pain, No Nose discharge, No Nose congestion, No Mouth pain, No Mouth swelling, No Throat pain, No Throat swelling, No Other Cardiovascular: No Chest Pain, No Palpitations, No Orthopnea, No Paroxysmal Noc. Dyspnea, No Edema, No Lt Headedness, No Other Respiratory: No Cough, No Dry, No Shortness of breath, No SOB with excertion, No Wheezing, No Hemoptysis, No Pleuritic Pain, No Sputum, No Other Gastrointestinal: Nausea, Vomiting, Abdominal Pain, Diarrhea; No Constipation, No Melena, No Hematochezia, No Other Genitourinary: No Dysuria, No Frequency, No Incontinence, No Hematuria, No Retention, No Other Musculoskeletal: No other, No neck pain, No shoulder pain, No arm pain, No back pain, No hand pain, No leg pain, No foot pain Skin: No Rash, No Lesions, No Jaundice, No Bruising, No Other Objective Vitals Vital Signs Date Time Temp Pulse Resp B/P (MAP) Pulse Ox O2 Delivery O2 Flow Rate FiO2 07/02/25 13:00 97.2 110 20 101/60 (74) 95 97.2 07/02/25 01:08 Room Air* 0 21 Intake/Output Intake and Output 07/02/25 07:00 Intake Total 50 ml Balance 50 ml Intake Oral 50 ml # Voids 1 General Appearance: Alert, Oriented X3, Cooperative, mild distress HEENT: Atraumatic, PERRLA Cardiovascular: Normal S1, Normal S2 Abdomen: Normal bowel sounds Back: Flank Tenderness, Midline Tenderness Musculoskeletal: Normal sensory function, Normal motor function Neuro: Normal gait, Normal speech Skin: Dry, Intact Psych/Mental Status: Mental status NL, Mood NL Medications Current Medications Medications Dose Ordered Sig/Kamille Route Start Time Stop Time Status Last Admin Dose Admin Ondansetron HCl 4 mg Q4HP PRN IV 07/01/25 11:30 07/01/25 14:23 4 MG Docusate Sodium 100 mg BIDPRN PRN PO 07/01/25 11:30 Ceftriaxone Sodium 50 ml @ 100 mls/hr DAILY@09 IV 07/02/25 09:00 07/02/25 08:24 100 MLS/HR Metronidazole 100 ml @ 100 mls/hr Q8HR IV 07/01/25 14:00 07/02/25 14:04 100 MLS/HR Acetaminophen/ Hydrocodone Bitart 1 tab Q4HPRN PRN PO 07/01/25 13:15 07/02/25 08:34 1 TAB Acetaminophen 650 mg Q4HP PRN PO 07/01/25 13:15 Metoclopramide HCl 10 mg Q6HR IV 07/01/25 18:00 07/02/25 08:25 10 MG Laboratory Results Laboratory Tests 07/02/25 06:10 Chemistry Test 07/02/25 06:10 Albumin 3.8 g/dL (3.2-4.8) Calcium Level 8.5 mg/dL (8.7-10.4) L Total Protein 6.4 g/dL (5.7-8.2) LFT Test 07/02/25 06:10 Alanine Aminotransferase (ALT) 73 U/L (7-40) H Alkaline Phosphatase 75 U/L (46-116) Aspartate Amino Transferase (AST) 59 U/L (13-40) H Total Bilirubin 0.6 mg/dL (0.2-1.0) Urinalysis Test 07/01/25 01:00 Urine Color Light-yellow (Yellow) Urine Clarity Clear (Clear) Urine pH 6.5 (5.0-9.0) Urine Specific [place] 1.012 (1.001-1.035) Urine Protein Negative (Negative) Urine Ketones Negative (Negative) Urine Blood Negative /uL (Negative) Urine Nitrite Negative (Negative) Urine Bilirubin Negative (Negative) Urine Urobilinogen Normal mg/dL (Negative) Urine Leukocyte Esterase Negative /uL (Negative) Urine RBC None seen /hpf (0 - 4) Urine Microscopic WBC < 1 /HPF (0-5) Urine Squamous Epithelial Cells Few /hpf (<5) Urine Bacteria Few /hpf (None Seen) H Urine Mucus Few (None Seen) Urine Glucose Normal mg/dL (Normal) Urine Test Negative (Negative) Labs and/or images reviewed: Labs reviewed by me, Image(s) reviewed by me Assessment/Plan Assessment/Plan Impression: -probable gastroenteritis -obesity -rule out cholelithiasis/cholecystitis -transaminitis Plan: -liver ultrasound -continue antibiotic therapy with Rocephin and Flagyl -IV hydration -advanced to full liquid diet -repeat labs in a.m. Total time spent with patient discussing and formulating plan of care: 35 minutes. This medical document was created using an electronic medical record system with [employer] [facility] [employer] [facility] dictation system. Although this document has been carefully reviewed, there may still be some phonetic and typographical errors. These areas are purely typographical due to imperfections of the software programs, and do not reflect any compromise in the patient's medical care. Plan discussed with: Patient, Other (RN) My Orders Orders - CHANDU NIEVES NP Procedure Category Date Status Time LIVER US 07/02/25 Taken 14:46 Full Liq Diet DIET 07/02/25 Verified Dinner Date of Service: Jul 02, 2025 Billing Provider: CHANDU NIEVES NP Common Visit Codes: [id number] INP/OBS CARE(HIGH) CHANDU NIEVES NP Jul 02, 2025 15:31
--- NOTE | 2025-07-02 15:47 | DVH ---
INDICATION: elevated lfts TECHNIQUE: Multiple real-time sonographic images of the abdomen were obtained. COMPARISON: None FINDINGS: Echogenic hepatic parenchyma consistent with steatosis. The liver measures 16 cm. No intra hepatic biliary ductal dilatation is noted. Small area decreased echogenicity adjacent of the gallbla dder in the liver most likely representing an area fatty sparing The gallbladder wall measures 0.23 cm and is unremarkable. No gallstones or sludge is seen. The co mmon duct measures 0.42 cm and is unremarkable. No pericholecystic fluid is noted. Negative sonograp hic Bertrand's sign The right kidney measures 11.3 cm. No hydronephrosis. The pancreas is not well visualized due to obscuration from bowel gas. The visualized portions of the IVC and aorta are grossly unremarkable. IMPRESSION: 1. 16 cm liver findings suggesting steatosis 2. Gallbladder is normal with no cholelithiasis dilated duct or thickened gallbladder wall. Negative sonographic bertrand's sign. 3. Right kidney 11.3 cm long with no hydronephrosis.
[2025-07-02 18:11] LABS: Base Excess -2.0 mmol/L (-2.0-3.0)
--- NOTE | 2025-07-02 18:37 | DVH ---
CLINICAL HISTORY: Pain. TECHNIQUE: Helical scanning was performed of the head from the skull base to the vertex. Multiplanar reconstructions were performed. This exam was performed according to our departmental dose optimizat ion program. Up-to-date CT equipment and radiation dose reduction techniques are utilized as appropri ate. CTDI 55.4 DLP 886 COMPARISON: None FINDINGS: There is no evidence for acute intracranial hemorrhage, acute ischemic changes, mass, mass effect, or extra-axial fluid collection. There is no hydrocephalus or midline shift. There is no effacement of the cerebral sulci and basal subarachnoid cisterns. The davila-white matter differentiation is well pedrito ntained. The imaged paranasal sinuses demonstrate minimal scattered mucoperiosteal thickening. IMPRESSION: NO ACUTE INTRACRANIAL ABNORMALITY SEEN.
[2025-07-02] MEDS: SODIUM CHLORIDE 0.9% 1,000 ML IV ONE (18:44)
[2025-07-02] MEDS: NALOXONE HCL 1MG/ML 2ML SYRINGE ONE (18:55)
[2025-07-02] MEDS: MORPHINE SULFATE INJ 2 MG/ml SYRG IV ONE (18:55)
[2025-07-02] MEDS: NALOXONE HCL 0.4 MG/ML VIAL ONE (18:55)
[2025-07-02] MEDS: NALOXONE HCL 1MG/ML 2ML SYRINGE IV ONE (18:55)
[2025-07-02 19:12] LABS: Hematocrit 38.9 % (36.0-46.0); Hemoglobin 13.5 g/dL (12.2-16.2); Mean Corpuscular Hemoglobin 28.4 pg (28.0-32.0); Mean Corpuscular Volume 81.7 fL (80.0-100.0); Nucleated Red Blood Cells % 0.3 %
--- NOTE | 2025-07-02 19:31 | RESUS ---
CODE ASSIST ASSESSSMENT Initial Information Code Assist Date: Jul 02, 2025 Code Assist Time: 17:37 Location of Arrest: ER holding Room # H1 Provider Name Hamzahwinlottie Time Notified: 17:37 Time PMD returned call: 17:40 Crash Cart Opened and Supplies: No Situation Staff concerned/worried, speci: Non-responsive, Change LOC Situation comment: Has been stable throughout day. Per primary nurse Alla RN, patient was complaining of abdominal pain approximately 10 minutes prior when she suddenly became unresponsive. Background Background: Patient admitted to med-surg for abdominal pain in holding area. No history of seizures. Assessment Temperature (Fahrenheit): 99.2 (1742) Blood Pressure Systolic: 148 Blood Pressure Diastolic: 83 Respiratory Rate: 14 O2 Sat by Pulse Oximetry: 100 Bedside Blood Glucose: 82 Assessment comment: 1747: BP 145/76, HR 117, O2sat 100% 1748: Waking up. Slow to respond. Denies taking anything besides hospital medications. Recommendations/Interventions Medications and Responses : Medication Time: 17:44 ADULT Medications Given: Narcan 1mg Heart Rate: 117 EKG Rhythm: Sinus Tachycardia Procedures: Accu check, ABG, EKG, O2 Mask/NC Outcome Outcome: Transfer to Stepdown (Moved to main ER bed 12.) Follow up Report Follow up Report Began to wake up at 1748 and was able to answer questions. Will continue to monitor. Team Members Team Members Resident Leeroy Flower CLINICAL PSYCHOLOGY PROFESSOR, Maria C RN, RN, Negrita RN, Renetta RT, Mera RN, Alla RN, Denise RT, Kimberley RN, Zhou TANNER, Elis Ayoub RN Jul 02, 2025 19:31
[2025-07-02 19:33] LABS: Albumin 3.8 g/dL (3.2-4.8); Alkaline Phosphatase 79 U/L (46-116); Anion Gap 11 (5-15); Carbon Dioxide 24 mmol/L (20-31); Chloride 107 mmol/L (98-107); Glucose 100 mg/dL (74-106); Lipase 33 U/L (12-53); Magnesium 1.8 mg/dL (1.6-2.6); Sodium 142 mmol/L (136-145); Total Protein 6.4 g/dL (5.7-8.2)
[2025-07-02 19:34] LABS: Bilirubin, Total 0.4 mg/dL (0.2-1.0)
[2025-07-02 19:35] LABS: Alanine Aminotransferase 74 U/L (7-40); BUN/Creatinine Ratio 6.8 (10.0-20.0); Blood Urea Nitrogen < 5 mg/dL (9-23); Calcium 8.4 mg/dL (8.7-10.4); Potassium 3.3 mmol/L (3.5-5.1)
[2025-07-02 19:42] LABS: Opiate Scree,Urine Neg (NEGATIVE)
[2025-07-02 19:48] LABS: Amphetamine Screen, Urine Neg (NEGATIVE); Barbiturate Scree,Urine Neg (NEGATIVE); Benzodiazephine Screen, Urine Neg (NEGATIVE); Cannabinoid Screen, Urine Neg (NEGATIVE); Cocaine Screen, Urine Neg (NEGATIVE); Phencyclidine Screen, Urine Neg (NEGATIVE)
[2025-07-02 20:11] LABS: INR 1.01 (0.9-1.15); Partial Thromboplastin Time 27.1 SEC (24.5-34.5); Prothrombin Time 10.7 sec (9.3-11.8)
[2025-07-03 01:00] VITALS: BP_SYST 122; BP_SYST 132; BP_DIAS 71; BP_DIAS 81; PULSE 72; PULSE 77; RESP 20; TEMP 97.3; TEMP 98.2; O2SAT 94; O2SAT 99
[2025-07-03 05:00] VITALS: BP 105/68; PULSE 74; RESP 20; TEMP 97.1; O2SAT 97
[2025-07-03 08:00] VITALS: PULSE 71; PULSE 80; RESP 18; O2SAT 97
[2025-07-03 09:00] VITALS: BP 108/74; PULSE 80; RESP 18; TEMP 98.5; O2SAT 97
[2025-07-03] MEDS: LACTULOSE 20Gm/30ML SOLN PO ONE (09:56)
--- NOTE | 2025-07-03 12:49 | DVHDS2 ---
Discharge Summary Date of Admission Jul 01, 2025 at 11:24 Date of Discharge: Jul 03, 2025 Admitting Diagnosis Intractable nausea and vomiting with abdominal pain. Labs/Diagnostic Data: Laboratory Results Test 07/02/25 19:19 07/02/25 18:50 07/02/25 17:40 07/02/25 17:39 Urine Opiates Screen Neg (NEGATIVE) Urine Fentanyl Screen Neg (NEGATIVE) Urine Barbiturates Screen Neg (NEGATIVE) Urine Phencyclidine Screen Neg (NEGATIVE) Urine Amphetamines Screen Neg (NEGATIVE) Urine Benzodiazepines Screen Neg (NEGATIVE) Urine Cocaine Screen Neg (NEGATIVE) Urine Cannabinoids Screen Neg (NEGATIVE) White Blood Count 2.9 10^3/uL (4.4-10.8) Red Blood Count 4.76 10^6/uL (4.0-5.20) Hemoglobin 13.5 g/dL (12.2-16.2) Hematocrit 38.9 % (36.0-46.0) Mean Corpuscular Volume 81.7 fL (80.0-100.0) Mean Corpuscular Hemoglobin 28.4 pg (28.0-32.0) Mean Corpuscular Hemoglobin Concent 34.8 g/dL (32.0-36.0) Red Cell Distribution Width 14.2 % (11.8-14.3) Platelet Count 137 10^3/uL (140-450) Mean Platelet Volume 9.3 fL (6.9-10.8) Neutrophils (%) (Auto) 70.8 % (37.0-80.0) Lymphocytes (%) (Auto) 23.6 % (10.0-50.0) Monocytes (%) (Auto) 4.7 % (0.0-12.0) Eosinophils (%) (Auto) 0.4 % (0.0-7.0) Basophils (%) (Auto) 0.5 % (0.0-2.0) Neutrophils # (Auto) 2.0 10 ^3/uL (1.6-8.6) Lymphocytes # (Auto) 0.7 10 ^3/uL (0.4-5.4) Monocytes # (Auto) 0.1 10 ^3/uL (0-1.3) Eosinophils # (Auto) 0 10 ^3/uL (0-0.8) Basophils # (Auto) 0 10 ^3/uL (0-0.2) Nucleated Red Blood Cells 0.3 % Prothrombin Time 10.7 sec (9.3-11.8) Prothrombin Time INR 1.01 (0.9-1.15) Activated Partial Thromboplast Time 27.1 SEC (24.5-34.5) Sodium Level 142 mmol/L (136-145) Potassium Level 3.3 mmol/L (3.5-5.1) Chloride Level 107 mmol/L (98-107) Carbon Dioxide Level 24 mmol/L (20-31) Anion Gap 11 (5-15) Blood Urea Nitrogen < 5 mg/dL (9-23) Creatinine 0.74 mg/dL (0.550-1.02) Glomerular Filtration Rate Calc 109 mL/min (>90) BUN/Creatinine Ratio 6.8 (10.0-20.0) Serum Glucose 100 mg/dL (74-106) Hemoglobin A1c 5.4 % A1C (<5.7) Calcium Level 8.4 mg/dL (8.7-10.4) Phosphorus Level 3.3 mg/dL (2.4-5.1) Magnesium Level 1.8 mg/dL (1.6-2.6) Total Bilirubin 0.4 mg/dL (0.2-1.0) Aspartate Amino Transferase (AST) 54 U/L (13-40) Alanine Aminotransferase (ALT) 74 U/L (7-40) Alkaline Phosphatase 79 U/L (46-116) Ammonia < 10 umol/L (11-32) Total Protein 6.4 g/dL (5.7-8.2) Albumin 3.8 g/dL (3.2-4.8) Lipase 33 U/L (12-53) Vitamin B12 Level 263 pg/mL (211-911) Vitamin D 25-Hydroxy 9.1 ng/mL (30.0-100) Thyroid Stimulating Hormone (TSH) 4.56 uIU/mL (0.55-4.78) POC Glucose 82 mg/dl (70-106) Blood Gas Specimen Type Arterial Blood Gas Sample Site Left radial Blood Gas Patient Temperature 37.0 Arterial Blood Date Drawn [id number] Arterial Blood pH 7.458 (7.350-7.450) Arterial Blood Partial Pressure CO2 29.8 mmHg (32.0-45.0) Arterial Blood Partial Pressure O2 110.2 mmHg (83.0-108.0) Arterial Blood HCO3 20.6 mmol/L (21.0-28.0) Arterial Blood Oxygen Saturation 98.4 % (94.0-98.0) Arterial Blood Base Excess -2.0 mmol/L (-2.0-3.0) Arterial Blood Oxyhemoglobin 97.1 % (94.0-98.0) Arterial Blood Carboxyhemoglobin 0.5 % (0.5-1.5) Arterial Blood Methemoglobin 0.8 % (0.0-1.5) Padilla Test Modified Blood Gas Total Hemoglobin 14.30 g/dL (12.0-16.0) Blood Gas Liter Flow 4.00 Blood Gas Modality Nasal cannula FiO2 % 36.0 Test 07/01/25 01:00 Urine Color Light-yellow (Yellow) Urine Clarity Clear (Clear) Urine pH 6.5 (5.0-9.0) Urine Specific [place] 1.012 (1.001-1.035) Urine Protein Negative (Negative) Urine Ketones Negative (Negative) Urine Blood Negative /uL (Negative) Urine Nitrite Negative (Negative) Urine Bilirubin Negative (Negative) Urine Urobilinogen Normal mg/dL (Negative) Urine Leukocyte Esterase Negative /uL (Negative) Urine RBC None seen /hpf (0 - 4) Urine Microscopic WBC < 1 /HPF (0-5) Urine Squamous Epithelial Cells Few /hpf (<5) Urine Bacteria Few /hpf (None Seen) Urine Mucus Few (None Seen) Urine Glucose Normal mg/dL (Normal) Urine Test Negative (Negative) Other Laboratory Tests 07/02/25 18:50 Brief Hx & Hospital Course: History of Present Illness Maria Esther Hernández is a 34-year-old female with past medical history of obesity, hyperlipidemia, and pancytopenia who came to the hospital for abdomial pain. Patient states her abdominal pain is in her epigastric region, sharp, stabbing pain, that came on suddenly yesterday morning. She has associated nausea, vomiting, and diarrhea. Has not been able to keep any food down since her symptoms began. Course of hospitalization: Patient had CT scan of the abdomen and pelvis which revealed retained stool. Patient also was noted to have mildly elevated LFTs. Patient had gallbladder ultrasound with no acute findings. Yesterday evening, patient had questionable syncopal episode. Patient had CT scan of the head which was negative for any acute pathology. Reviewing patient's medical records reveals she has had multiple hospitalizations in the past year with similar complaints of syncope with no acute findings with CT angiogram of the neck, carotid ultrasound of the neck, MRI of the brain, EEGs. Patient had neurology consultations in the past. Patient also had psychiatry consultation for which the patient refused. Patient has no further abdominal pain. She was given bowel regimen with positive BM today. Patient will be discharged home and is instructed to follow up with her PCP in 1-2 weeks. Physical examination General: Alert and Oriented x3. No acute distress. Well-nourished. Eyes: EOMI. Anicteric. HENT: Moist mucous membranes. Lungs: Clear to auscultation bilaterally. No accessory muscle use. Cardiovascular: Regular rate and rhythm. No murmur. No JVD. Abdomen: Soft, non-tender and non-distended. No palpable masses. Extremities: No edema. Non-tender. Skin: No rashes or lesions. Warm. Neurologic: No focal neurological deficits. CN II-XII grossly intact, but not individually tested. Psychiatric: Cooperative. Appropriate mood and affect. Total time spent with patient discussing and formulating plan of care: 35 minutes. This medical document was created using an electronic medical record system with [employer] dictation system. Although this document has been carefully reviewed, there may still be some phonetic and typographical errors. These areas are purely typographical due to imperfections of the software programs, and do not reflect any compromise in the patient's medical care. Condition at Discharge: Fair Final Diagnosis/Problems List Acute abdominal pain, probably secondary to gastroenteritis and constipation Secondary diagnosis: -probable gastroenteritis -obesity -ruled out cholelithiasis/cholecystitis -transaminitis Discharge Disposition: Home Discharge Instruct/Medications Diet: Regular Activity: No Restrictions, As Tolerated Follow Up/Referral: Follow up with PCP in 1-2 weeks Medications: Continue all home medications No Active Prescriptions or Reported Meds 36 Discharge Statement: "Patient was advised to return to the ER or call 911 if any headaches, dizziness, shortness of breath, chest pain, abdominal pain, bleeding, fevers, or worsening of medical condition. Patient was counseled about treatment plan, medications, possible side effects, patientverbalized understanding. All questions were answered to the best of my ability. This discharge took greater then 30 minutes in planning, reviewing documentation, counseling the patient, and discussing with other team members." ASSESSMENT ASSESSMENT Assessment Acute abdominal pain, probably secondary to gastroenteritis and constipation Date of Service: Jul 03, 2025 Billing Provider: CHANDU NIEVES NP Common Visit Codes: 18665-SRP/OBS DISCH DAY >30min CHANDU NIEVES NP Jul 03, 2025 12:49
[2025-07-03 13:00] VITALS: BP 119/75; PULSE 79; RESP 20; TEMP 98.7; O2SAT 98
[2025-07-03 14:00] VITALS: BP 108/74; PULSE 80; RESP 18; TEMP 98.5; O2SAT 97
--- NOTE | 2025-07-04 11:36 | ECG ---
[facility] Test Date: 2025-07-02 Test Time: 17:55:56 Pat Name: WALE MARTINEZ Department: [facility] ED Room: 0235T A Gender: F [employer]: marina : 1990 Requested By: CELIA COSBY Order Number: [id number] Reading MD: Trey Nava Measurements Intervals [place] Rate: 102 P: 45 CA: 173 QRS: 86 QRSD: 95 T: 19 QT: 370 QTc: 483 Interpretive Statements Sinus tachycardia Baseline wander in lead(s) I,II,aVR Electronically Signed On 07-07-2025 10:17:32 PDT by Trey Nava Please click the below link to view image of tracing.
== END 2025-07-03 14:55 | disposition home or self-care (01) | DRG 249 ==
LOC: ER 22:07 → EDBD 22:07 → OVERFLOW 07-01 11:24 → TELE-EAST 07-01 11:32
PROVIDERS: ADMIT Nurse Practitioner Acute Care; ATTEND Nurse Practitioner Acute Care
DX: A09 Infectious gastroenteritis and colitis, unspecified (principal); D72.819 Decreased white blood cell count, unspecified; K59.00 Constipation, unspecified; E66.9 Obesity, unspecified; Z68.37 Body mass index [BMI] 37.0-37.9, adult; E78.5 Hyperlipidemia, unspecified; R55 Syncope and collapse; R74.01 Elevation of levels of liver transaminase levels; N83.292 Other ovarian cyst, left side; Z87.59 Personal history of other complications of pregnancy, childbirth and the puerperium
CPT/HCPCS: 36415; 36600; 70450; 71045; 74177; 76705; 80053; 80307; 81001; 81025; 82140; 82306; 82607; 82805; 82962; 83036; 83690; 83735; 84100; 84443; 85025; 85610; 85730; 93005; 96361; 96365; 96367; 96375; 99291; G0378; J2405; J3490